=== PATIENT | male | born 1945 | race Caucasian/White ===

== ENCOUNTER 2019-09-05 12:04 | Outpatient (CLI) | payer OTHER, SELFPAY ==
--- NOTE | ~2019-09-05 | XR_ITS ---
EXAMINATION: XR chest 2V EXAM DATE: 09/05/2019 12:31 INDICATION: Pneumonia. TECHNIQUE: Frontal and lateral projections of the chest obtained and reviewed. Comparison is made to prior examination from 05/31/2019. FINDINGS: Previously seen right lower lobe airspace disease has resolved. The lungs are clear. Ther e are no pleural effusions. The cardiomediastinal silhouette is within normal limits. There is no p neumothorax suspected. The bones and soft tissues are unremarkable. IMPRESSION: No acute cardiopulmonary findings. Reviewed, dictated and finalized at location B. EL TRACTOR ENGINE MECHANIC
== END 2019-09-05 12:05 | disposition home or self-care (01) ==
PROVIDERS: Visit Provider Internal Medicine
DX: J18.9 Pneumonia, unspecified organism (principal)
CPT/HCPCS: 71046

== ENCOUNTER 2020-04-11 06:56 | Outpatient (CLI) | payer OTHER, SELFPAY ==
--- NOTE | ~2020-04-11 | CT_ITS ---
EXAMINATION: CT lung screening DATE: 04/11/2020 07:23 INDICATION: Personal history of nicotine dependence TECHNIQUE: Computed tomography (CT) of the chest was performed without intravenous contrast. The dose -length product was 136.61 mGy-cm. Automated exposure control and iterative reconstruction technique were employed. COMPARISON: CT dated 02/22/2019 FINDINGS: No significant pleural or pericardial effusion. Heart size is normal. There is atherosclero sis of the aorta and coronary arteries. There are calcified granulomas in the spleen. Calcified media stinal lymph nodes, consistent with chronic granulomatous disease. There is emphysema. There are reticulonodular densities in the right lower lobe. These are not signif icantly changed, likely postinfectious. Other areas of interstitial change seen on prior study have r esolved. There are a few calcified granulomas of the lung parenchyma. No new pulmonary nodules or mas ses. Mild thoracic spondylosis. No acute osseous abnormality. No osteolytic or osteoblastic lesions. IMPRESSION: 1. Lung-RADS category 2: Benign appearance or behavior. Continue annual screening with noncontrast lo w-dose chest CT in 12 months. Reviewed, dictated and finalized at location B. IMPRESSION: 1. Lung-RADS category 2: Benign appearance or behavior. Continue annual screeni ng with noncontrast low-dose chest CT in 12 months.
== END 2020-04-11 06:57 | disposition home or self-care (01) ==
LOC: ANHIMG 07:00
PROVIDERS: Visit Provider Internal Medicine
DX: Z12.2 Encounter for screening for malignant neoplasm of respiratory organs (principal); Z87.891 Personal history of nicotine dependence
CPT/HCPCS: G0297

== ENCOUNTER 2021-06-28 00:32 | Day surgery (SDC) | payer OTHER, SELFPAY ==
[2021-06-11 12:42] VITALS: BMI 25.8
--- NOTE | 2021-06-27 15:25 | PM.HPGS ---
History of Present Illness History of Present Illness Consent: Risks, benefits, and alternatives have been discussed and questions answered. Patient agrees to proceed with procedure. Chief complaint: hx colon polyps Narrative: Pranav Win is a 76 year old male Review of Systems Review of Systems: All systems reviewed & are unremarkable except as noted in HPI and below PMFSH Family History Family History Sibling Family history of coronary artery disease Patient's brother is Father Patient's father is Other Carcinoma of colon Colon polyp Social History Social History Smoking packs per day: 1 Smoking cigarettes per day: 20.0 Years smoked: 55 Smoking pack-years: 55.00 Smoking status: Former smoker Second hand tobacco smoke exposure: No Smoking end date: 07/27/19 Alcohol intake: current Drinks per week: 7 Substance use: never Substance use type: does not use Living arrangements: alone Spiritual care concerns: No Meds Home Medications and Allergies Home Medications Medication Instructions Recorded Confirmed Type rosuvastatin 10 mg tablet See Rx Instructions .ROUTE 02/08/21 06/11/21 Rx .COMPLEX #90 tablet sildenafil (pulm.hypertension) 20 20 mg PO .COMPLEX PRN #50 tablet 03/04/21 06/11/21 Rx mg tablet bupropion HCl 150 mg tablet,12 hr See Rx Instructions .ROUTE 04/08/21 06/11/21 Rx sustained-release .COMPLEX #180 tablet aspirin 81 mg tablet,delayed 81 mg PO DAILY #1 tablet 04/23/21 06/11/21 Rx release clopidogrel 75 mg tablet See Rx Instructions .ROUTE 05/06/21 06/11/21 Rx .COMPLEX #90 tablet amlodipine 5 mg tablet See Rx Instructions .ROUTE 06/24/21 Rx .COMPLEX #90 tablet Allergies Allergy/AdvReac Type Severity Reaction Status Date / Time No Known Allergies Allergy Verified 06/28/21 08:35 Exam Resp: Auscultation: clear to auscultation bilaterally Cardio: Rate: regular rate Rhythm: regular rhythm GI: GI Palp: Yes Soft to palpation and No Tenderness to palpation present (GI) Assessment and Plan Assessment and plan (1) Colon cancer screening: Code(s): Z12.11 - Encounter for screening for malignant neoplasm of colon Status: Acute Assessment and Plan: Colonoscopy with possible biopsy or polypectomy or cautery or injection of substances.
[2021-06-28 08:37] VITALS: BP 133/96; PULSE 72; RESP 20; TEMP 36.4; O2SAT 100; BMI 25.5
[2021-06-28] MEDS: LACTATED RINGERS 1,000 ML 150 ML IV CONT (08:40)
--- NOTE | 2021-06-28 08:48 | WPDANESEPPF ---
Anes - Initial Pre Proc Eval Procedure: Operation Date: 06/28/21 09:30 Proposed Procedures p Screening Colonoscopy - Harry Marshall MD Date/Time: 06/28/21 08:48 Surgeon: Harry Marshall MD Pre Op Diagnosis: hx colon polyps Patient Data Age: 76 Gender: M Height: 1.8 m Weight: 83.1 kg Last Vital Signs Temp 36.4 C L 06/28/21 08:37 Pulse 72 06/28/21 08:37 Resp 20 06/28/21 08:37 BP 133/96 H 06/28/21 08:37 Pulse Ox 100 06/28/21 08:37 Allergies Allergy/AdvReac Type Severity Reaction Status Date / Time No Known Allergies Allergy Verified 06/28/21 08:35 Home Medications Medication Instructions Recorded Confirmed Type rosuvastatin 10 mg tablet See Rx Instructions .ROUTE 02/08/21 06/11/21 Rx .COMPLEX #90 tablet sildenafil (pulm.hypertension) 20 20 mg PO .COMPLEX PRN #50 tablet 03/04/21 06/11/21 Rx mg tablet bupropion HCl 150 mg tablet,12 hr See Rx Instructions .ROUTE 04/08/21 06/11/21 Rx sustained-release .COMPLEX #180 tablet aspirin 81 mg tablet,delayed 81 mg PO DAILY #1 tablet 04/23/21 06/11/21 Rx release clopidogrel 75 mg tablet See Rx Instructions .ROUTE 05/06/21 06/11/21 Rx .COMPLEX #90 tablet amlodipine 5 mg tablet See Rx Instructions .ROUTE 06/24/21 Rx .COMPLEX #90 tablet Patient hx anesthesia problems: none Family hx anesthesia problems: none Results Review: All pre-operative results and documents have been reviewed as part of the pre-operative evaluation. [facility] Family History Family History Sibling Family history of coronary artery disease Patient's brother is Father Patient's father is Other Carcinoma of colon Colon polyp Social History Social History Smoking packs per day: 1 Smoking cigarettes per day: 20.0 Years smoked: 55 Smoking pack-years: 55.00 Smoking status: Former smoker Second hand tobacco smoke exposure: No Smoking end date: 07/27/19 Alcohol intake: current Drinks per week: 7 Substance use: never Substance use type: does not use Living arrangements: alone Spiritual care concerns: No Anes - Eval Final PreProcedure Day of Procedure 06/28/21 08:48 Patient weight: overweight Heart: regular rate and rhythm Lungs: clear to auscultation Airway: Mallampati scale class II Neurological: alert and oriented Last oral intake: >/= 8 hours ASA classification: III Emergent: no Anesthetic plan: proceed Anesthesia type and monitoring: general GIVS and standard monitoring Results Review: All pre-operative results and documents have been reviewed as part of the pre-operative evaluation. Informed Consent: The patient's anesthetic plan and its attendant risks and benefits were discussed with the patient/family/POA. Questions were solicited and answers provided to the satisfaction of the patient/family/POA.
[2021-06-28 09:47] VITALS: BP 87/48; PULSE 65; RESP 20; O2SAT 97
[2021-06-28 09:56] VITALS: BP 99/52; PULSE 67; RESP 20; O2SAT 99
[2021-06-28 10:07] VITALS: BP 85/52; PULSE 67; RESP 20; O2SAT 100
== END 2021-06-28 10:19 | disposition home or self-care (01) ==
PROVIDERS: Visit Provider Internal Medicine Gastroenterology
PROC: 0DJD8ZZ Inspection of Lower Intestinal Tract, Via Natural or Artificial Opening Endoscopic (ICD-10-PCS; CPT 45378; principal; 2021-06-28 09:30)
DX: Z12.11 Encounter for screening for malignant neoplasm of colon (principal); K57.30 Diverticulosis of large intestine without perforation or abscess without bleeding; Z86.010 Personal history of colon polyps; Z79.02 Long term (current) use of antithrombotics/antiplatelets; Z79.82 Long term (current) use of aspirin; Z87.891 Personal history of nicotine dependence
CPT/HCPCS: G0105; J2704; J7120

== ENCOUNTER 2022-01-29 08:32 | Outpatient (RCR) | payer OTHER, SELFPAY ==
[2022-01-29 09:58] VITALS: BP 133/56; PULSE 68; RESP 20; TEMP 36.2; O2SAT 99
[2022-01-29] MEDS: diphenhydrAMINE HCl CAP 25 MG CAPSULE PO (10:01)
[2022-01-29] MEDS: FAMOTIDINE 20 MG TABLET PO (10:01)
[2022-01-29] MEDS: ACETAMINOPHEN 325 MG TABLET 650 MG PO (10:01)
[2022-01-29] MEDS: BEBTELOVIMAB 175 MG/2 ML VIAL IV PUSH (10:23)
[2022-01-29 11:10] VITALS: BP 142/56; PULSE 60; O2SAT 99
== END 2022-01-29 16:00 ==
LOC: AMCINF 08:32
PROVIDERS: PCP Nurse Practitioner; Referring Provider Nurse Practitioner; Visit Provider Internal Medicine Hematology & Oncology
DX: U07.1 COVID-19 (principal)
CPT/HCPCS: A9270; M0222; Q0222

== ENCOUNTER 2023-05-14 11:08 | Outpatient (CLI) | payer OTHER, SELFPAY | END 2023-05-14 11:09 | disposition home or self-care (01) | LOC: ANHAUDIO 11:09 | PROVIDERS: PCP Nurse Practitioner Family; Visit Provider Nurse Practitioner Family | DX: H91.90 Unspecified hearing loss, unspecified ear (principal) | CPT/HCPCS: 92557; 92567 ==

== ENCOUNTER 2023-09-09 17:31 | Inpatient (IN) | payer OTHER, SELFPAY ==
[2023-09-09] VITALS (16 sets, daily range): BP systolic 132–190; BP diastolic 63–174; PULSE 68–146; RESP 13–24; TEMP 36.2–36.3; O2SAT 95–99; BMI 25.2
--- NOTE | ~2023-09-09 | XR_ITS ---
EXAMINATION: XR chest 1V portable DATE: 09/09/2023 18:21 INDICATION: Chest pain TECHNIQUE: frontal view of the chest was obtained. COMPARISON: Chest radiograph dated 09/05/[address] dated 04/11/2020 FINDINGS: Subtle increased interstitial pattern with minimal bronchial wall thickening in the bilateral lower l rachael zones. No pleural effusion or pneumothorax. The cardiomediastinal silhouette is normal. Visualize d bones and soft tissues are unremarkable. IMPRESSION: 1. Subtle increased interstitial pattern and minimal bronchial wall thickening in the bilateral lower lung zones. Differential would include bronchitis, reactive airway disease/asthma or minimal pulmona ry edema. Reviewed, dictated and finalized at location A. CTION THERAPIST IMPRESSION: 1. Subtle increased interstitial pattern and minimal bronchial wall thickening in the bilateral lower lung zones. Differential would include bronchitis, react trupti airway disease/asthma or minimal pulmonary edema.
--- NOTE | 2023-09-09 17:32 | ECG_ITS ---
Measurements Intervals [place] Rate: 147 P: VA: 0 QRS: -69 QRSD: 96 T: 0 QT: 149 QTc: 233 Interpretive Statements ATRIAL FLUTTER/TACHYCARDIA WITH RAPID VENTRICULAR RESPONSE MARKED LEFT AXIS DEVIATION [QRS AXIS < -30] INCOMPLETE RIGHT BUNDLE BRANCH BLOCK [90+ ms QRS DURATION, TERMINAL R IN V1/V2, 40+ ms S IN I/aVL/V4/V5/V6] NONSPECIFIC ST & T-WAVE ABNORMALITY COMPARED TO ECG 08/25/2018 09:02:14 ATRIAL FLUTTER NOW PRESENT Electronically Signed On 09-10-2023 12:34:45 HAT BRAIDER by Yris Feldman M.D.
[2023-09-09 18:03] LABS: Basophils Percent Auto 0.2 % (0.2-1.2); Eosinophils Absolute Auto 0.2 K/mm3 (0-0.3); Hematocrit 42.8 % (42.0-52.0); Hemoglobin 13.7 g/dL (14.0-18.0); Immature Granulocyte Absolute 0.03 K/mm3 (0.00-0.031); Immature Granulocyte Percent A 0.3 % (0-0.5); Lymphocytes Absolute Auto 2.32 K/mm3 (0.9-3.2); Mean Corpuscular Volume 93.9 fl (80-100); Mean Platelet Volume 9.9 fl (7.4-10.4); Monocytes Absolute Auto 0.9 K/mm3 (0.1-0.6); Monocytes Percent Auto 10.7 % (2.6-8.5); Neutrophils Absolute Auto 5.1 K/mm3 (1.3-6.7); Neutrophils Percent Auto 59.8 % (45.5-73.1); Platelet Count Result 201 k/mm3 (150-375); Red Blood Count 4.56 M/mm3 (4.6-6.20); Red Cell Distribution Width 12.9 % (11.5-14.5); White Blood Count 8.6 K/mm3 (4.5-10.0)
[2023-09-09] MEDS: ASPIRIN 81 MG CHEWABLE TABLET 324 MG PO (18:13)
[2023-09-09] MEDS: SODIUM CHLORIDE 0.9% IV 1,000 ML 150 ML IV CONT (18:14)
[2023-09-09] MEDS: dilTIAZem HCl INJ 25 MG/5 ML VIAL 10 MG IV PUSH (18:14)
[2023-09-09] MEDS: dilTIAZem 100 MG/100 ML 100 MG/100 ML BAG IV CONT (18:14)
--- NOTE | 2023-09-09 18:14 | PC.NURSE ---
Pt states he had 81mg of ASA this morning.
[2023-09-09 18:15] LABS: Prothrombin Time 13.9 Seconds (11.1-14.7)
[2023-09-09 18:16] LABS: Partial Thromboplastin Time 34.7 SECONDS (22.3-36.8)
[2023-09-09 18:17] LABS: Alanine Aminotransferase 24 U/L (6-50); Albumin Level 3.9 g/dL (3.5-5.1); Alkaline Phosphatase 78 U/L (38-126); Anion Gap 7 mmol/L (8-16); Aspartate Amino Transferase 30 U/L (17-59); Bilirubin,Total 0.4 mg/dL (0.2-1.3); Blood Urea Nitrogen 20 mg/dL (9-20); Calcium 9.4 mg/dL (8.4-10.2); Carbon Dioxide 27 mmol/L (22-30); Chloride 105 mmol/L (98-107); Estimated CRCL calculation 43 ml/min; Estimated Glomerular Filt Rate > 60; Glucose 119 mg/dL (65-110); Lipase 154 U/L (23-300); Magnesium 2.3 mg/dL (1.6-2.3); Potassium 3.7 mmol/L (3.4-5.0); Sodium 139 mmol/L (137-145)
--- NOTE | 2023-09-09 18:22 | ED.CHESTPAIN ---
HPI - Chest Pain General Chief Complaint: Chest Pain Stated Complaint: chest pressure/jaw pain since yesterday Time Seen by Provider: 09/09/23 17:45 History of Present Illness HPI narrative: Patient is an 78-year-old male who presents to the emergency department this afternoon complaining of palpitations and bilateral jaw pain. Patient states that symptoms started yesterday with the jaw pain and went away, however, it returned today. Patient states that while he was coughing today he noticed his heart rate does increase and finally decided to come to the emergency department for further evaluation. Denies any history of cardiovascular disease. Patient states that he has had a left heart catheterization approximately 20 years ago which showed clean coronaries. He takes a baby aspirin daily denies any blood thinner use. Patient is currently denying any chest pain or shortness of breath. Denies any nausea, vomiting, or abdominal pain. Denies any recent illness or fevers or chills. There are no other modifying, alleviating, or precipitating factors at this time. Related Data Home Medications Medication Instructions Recorded Confirmed fluticasone propionate 50 1 spray intranasal BID PRN 03/10/23 03/17/23 mcg/actuation nasal spray,suspension (Flonase Allergy Relief) Allergies Allergy/AdvReac Type Severity Reaction Status Date / Time No Known Allergies Allergy Verified 03/17/23 07:15 Review of Systems Review of Systems: All systems are reviewed and are negative unless stated otherwise in the HPI. [facility] Past Medical History Medical History BPH (benign prostatic hyperplasia) COVID-19 Erectile dysfunction Essential (primary) hypertension History of CVA (cerebrovascular accident) History of tobacco use Hypovitaminosis D Mixed hyperlipidemia LEXIE (obstructive sleep apnea) REM sleep behavior disorder Family History Family History Sibling Family history of coronary artery disease Patient's brother is Father Patient's father is Other Carcinoma of colon Colon polyp Social History Social History Years smoked: 55 Smoking status: Current some day smoker Tobacco type: cigarettes Additional smoking assessment comments: Per patient he only smokes on the golf coarse. Alcohol intake: current Drinks per week: 9 Alcohol use details: socially Substance use: never Substance use type: does not use Lack of Transportation: No Lack of Food: Never True Current Housing: I Have Housing Concerned About Future Housing: No Difficulty Paying Gas/Electric Bills: No Difficulty Paying for Meds: No Currently Unemployed: No Education: High School Diploma/GED Difficulty w/ Childcare or Family Care: No Living arrangements: alone Spiritual care concerns: No Exam Narrative: General: Alert, awake, afebrile, in no acute distress. HEENT: PERRL, no rhinorrhea, no post nasal drip, oropharynx clear. Neck: Trachea midline, no JVD, no lymphadenopathy. Cardiovascular: Tachycardic with an irregular rhythm, no murmurs, rubs or gallops, no peripheral edema. Respiratory: Clear to auscultation bilaterally, no tachypnea, no wheezing, no rhonchi, no rubs, no respiratory distress. Abdomen: Soft, nontender, nondistended, no rebound, no guarding, no peritoneal signs. Musculoskeletal: No joint swelling or deformity, normal muscle tone. Skin: No rashes or petechia, no signs of infection. Psychiatric: Alert and oriented, normal behavior and judgment for situation. Neurological: Alert and oriented to person, place, and time. Follows all commands. No focal deficits, speech is clear and fluent. Course Vital Signs Vital signs: Vital Signs Temperature 97.3 F L 09/09/23 17:41 Pulse Rate 144 H 09/09/23
[2023-09-09 18:28] LABS: Troponin I < 0.012 ng/mL (0.000-0.034)
[2023-09-09 18:37] LABS: Appearance Urine Clear (Clear); Bilirubin Urine Negative (Negative); Blood Urine Negative (Negative); Color Urine Yellow (Yellow); Glucose Urine UA Negative (Negative); Ketones Urine Negative (Negative); Leukocyte Esterase Ur Negative LEU/UL (Negative); Nitrate Urine Negative (Negative); Protein Urine Negative (Negative); Specific Grav Ur 1.014 (1.001-1.035); Urobilinogen Urine 0.2 mg/dL (<2.0); pH Urine 5.5 (5.0-9.0)
[2023-09-09 18:43] LABS: Add Urine Microscopic? NO
--- NOTE | 2023-09-09 19:19 | PC.NURSE ---
Assumed care of pt from MARY Clayton at this time.
[2023-09-09] MEDS: ENOXAPARIN 80 MG/0.8 ML SYRINGE 58 MG SUB-Q (19:48)
[2023-09-09 21:18] LABS: Troponin I < 0.012 ng/mL (0.000-0.034)
--- NOTE | 2023-09-09 22:50 | ADMGEN ---
This patient, Pranav Win, was admitted to IMU Room 206-02. Patient/family oriented to hospital policies and general routines including ID bracelet, bed and alarms, visiting hours, pain management, procedures, bathroom and other care routines, personal items, smoking policy, room service/diet, and visiting hours. Information on how to activate the Rapid Response Team has been discussed. Patient/Family are encouraged to report perceived risks to care and to ask questions if they do not understand what they are told or what they should do.
[2023-09-10] VITALS (12 sets, daily range): BP systolic 120–150; BP diastolic 62–66; PULSE 68–110; RESP 18–22; TEMP 36.2–36.6; O2SAT 97–98
--- NOTE | 2023-09-10 | ECHO_ITS ---
Patient Info Name: Pranav Win Age: 78 years : 1945 Gender: Male Ht: 71 in Wt: 180 lbs BSA: 2.03 m2 HR: 83 bpm BP: 149 / 62 mmHg Heart Rhythm: Sinus Rhythm Technical Quality: Poor Exam Date: 09/10/2023 9:05 AM Exam Location: Echo Lab Patient Status: Inpatient Admit Date: 09/09/2023 Staff Ordering Physician: Diana Shah MD Band Scroll Saw Operator: Brandy Andersen RDCS Attending Provider: Adelaida Sykes DO Referring Physician: Alyssa AARON; Exam Type: CA echo dop color flow w con Study Info Indications - new onset a fib Complete two-dimensional, color flow and Doppler transthoracic echocardiogram is performed with contrast to opacify the left ventricle and to improve the deliniation of the left ventricle endocardial borders. Contrast/Agitated Saline Contrast/Ag. Saline: Definity Amount: 3.00 ml Reason for Poor Study: poor echocardiographic windows Summary 1. Left ventricular chamber dimension is normal. 2. Left ventricular systolic function is normal, estimated at 60-65%. 3. There is mildly increased left ventricular wall thickness. 4. The left ventricular diastolic function is grade I diastolic dysfunction. 5. There is mild to moderate aortic valve regurgitation. 6. There is mild aortic valve calcification. 7. There is mild mitral valve regurgitation. 8. There is mild pulmonic regurgitation. 9. The aortic root size at the sinus of Valsalva is mildly dilated. Left Ventricle Left ventricular chamber dimension is normal. Left ventricular systolic function is normal, estimated at 60-65%. There is mildly increased left ventricular wall thickness. The left ventricular diastolic function is grade I diastolic dysfunction. Right Ventricle Right ventricular chamber dimension is normal. Right ventricular systolic function is normal. Left Atria Left atrial chamber dimension is normal. Right Atria Right atrial chamber dimension is normal. Atrial Septum Intact interatrial septum visualized by color flow imaging. Aortic Valve The aortic valve is trileaflet. There is mild aortic valve sclerosis. There is no aortic valve stenosis. There is mild to moderate aortic valve regurgitation. There is mild aortic valve calcification. Pulmonic Valve The pulmonic valve is normal. There is no pulmonic valve stenosis. There is mild pulmonic regurgitation. Mitral Valve The mitral valve has calcified annulus. There is no mitral valve stenosis. There is mild mitral valve regurgitation. Tricuspid Valve The tricuspid valve leaflets are normal. There is no significant tricuspid valve stenosis. There is trace tricuspid valve regurgitation. No pulmonary hypertension, estimated pulmonary arterial systolic pressure is 15 mmHg. Pericardium/Pleural The pericardium appears normal. There is no pericardial effusion. Inferior Vena Cava Normal inferior vena cava with >50% collapse upon inspiration consistent with normal right atrial pressure, 10 mmHg. Aorta The aortic root size at the sinus of Valsalva is mildly dilated. Left Ventricular Outflow Tract Name Value Normal LVOT 2D LVOT Diameter 2.22 cm LVOT Doppler LVOT Peak Gradient
[2023-09-10 01:26] LABS: Troponin I < 0.012 ng/mL (0.000-0.034)
--- NOTE | 2023-09-10 04:32 | ECG_ITS ---
Measurements Intervals [place] Rate: 69 P: 60 MT: 164 QRS: -61 QRSD: 111 T: 57 QT: 339 QTc: 365 Interpretive Statements SINUS RHYTHM COMPARED TO ECG 09/09/2023 17:39:36 SINUS RHYTHM NOW PRESENT Electronically Signed On 09-10-2023 12:39:18 CARBON BRUSHES ASSEMBLER by Yris Feldman M.D.
[2023-09-10] MEDS: ACETAMINOPHEN 325 MG TABLET 650 MG PO (05:50)
--- NOTE | 2023-09-10 07:31 | PM.IMHP ---
H&P: HPI History of Present Illness Date/Time: 09/10/23 07:31 Chief Complaint: Chest pain and palpitation Narrative: Patient is an 78-year-old male with history of CVA, tobacco to use, hyperlipidemia, LEXIE, present ED with chief complaint of chest pain and palpitation. Patient has been having intermittent chest pain in past 3 days, locating in left chest, radiating to bilateral jaw, patient also has palpitation. Patient had another episode of palpitation yesterday, therefore patient came to ED for evaluation. patient states that he has had a left heart catheterization approximately 20 years ago which showed clean coronaries.? He takes a baby aspirin daily denies any blood thinner use patient denies abdomen pain any nausea, vomiting, fevers or chills.? In the ED, upon arrival in the ED, patient was afebrile, pulse ox 97 on room air, blood pressure stable, troponin negative x3, EKG showed no specific ST T-wave changes port EKG showed AFib RVR heart rate 147. Chest x-ray showed no acute cardiopulmonary issues. Patient received aspirin 324 mg once, Dr. Brittney chirinos, Lovenox 58 mg subQ once. We admit patient for further evaluation and treatment PMFSH Past Medical History Medical History BPH (benign prostatic hyperplasia) COVID-19 Erectile dysfunction Essential (primary) hypertension History of CVA (cerebrovascular accident) History of tobacco use Hypovitaminosis D Mixed hyperlipidemia LEXIE (obstructive sleep apnea) REM sleep behavior disorder Family History Family History Sibling Family history of coronary artery disease Patient's brother is Father Patient's father is Other Carcinoma of colon Colon polyp Social History Social History Years smoked: 50 Smoking status: Current some day smoker Tobacco type: cigarettes Additional smoking assessment comments: Per patient he only smokes on the golf coarse. Alcohol intake: current Drinks per week: 9 Alcohol use details: socially Substance use: never Substance use type: does not use Do You Feel Safe in your Home?: Yes Lack of Transportation: No Lack of Food: Never True Current Housing: I Have Housing Concerned About Future Housing: No Difficulty Paying Gas/Electric Bills: No Difficulty Paying for Meds: No Currently Unemployed: No Education: Associate Degree Difficulty w/ Childcare or Family Care: No Living arrangements: alone Spiritual care concerns: No Meds Home Medications and Allergies Home Medications Medication Instructions Recorded Confirmed Type aspirin 81 mg tablet,delayed 81 mg PO DAILY #1 tablet 04/23/21 09/09/23 Rx release (Adult Aspirin Regimen) finasteride 5 mg tablet 5 mg PO DAILY #90 tabs 05/18/23 09/09/23 Rx sildenafil (pulm.hypertension) 20 20 mg PO .COMPLEX PRN sexual 07/24/23 09/09/23 Rx mg tablet activity #50 tabs amlodipine 2.5 mg tablet 2.5 mg PO DAILY #90 tabs 08/03/23 09/09/23 Rx bupropion HCl 150 mg tablet,12 hr 150 mg PO BID 09/09/23 09/09/23 History sustained-release clopidogrel 75 mg tablet 75 mg PO DAILY 09/09/23 09/09/23 History diphenhydramine 25 2 tablet PO HS PRN Sleep 09/09/23 09/09/23 History mg-acetaminophen 500 mg tablet (Tylenol PM Extra Strength) rosuvastatin 10 mg tablet 10 mg PO HS 09/09/23 09/09/23 History Allergies Allergy/AdvReac Type Severity Reaction Status Date / Time No Known Allergies Allergy Verified 03/17/23 07:15 Vital Signs Vital Signs - 24 hr 09/09/23 17:41 09/09/23 18:14 09/09/23 17:52 Temperature 97.3 F L Pulse Rate 144 H 146 H 144 H Respiratory Rate 18 15 Blood Pressure 139/82 156/143 H Pulse Oximetry 98 98 Oxygen Delivery Room Air 09/09/23 17:53 09/09/23 18:00 09/09/23 18:01 Temperature Pulse Rate 146 H 146 H 145 H Resp
[2023-09-10] MEDS: buPROPion HCL SR (12 HR) 150 MG TAB PO (08:52)
[2023-09-10] MEDS: CLOPIDOGREL BISULFATE 75 MG TABLET PO (08:53)
[2023-09-10] MEDS: FINASTERIDE 5 MG TABLET PO (08:53)
[2023-09-10] MEDS: ASPIRIN 81 MG ENTERIC TABLET PO (08:53)
[2023-09-10] MEDS: PERFLUTREN LIPID MICROSPHERES 1.5 ML VIAL DILUTED TO 10 ML TOTAL VOLUME IV PUSH (09:30)
--- NOTE | 2023-09-10 11:01 | IVDEFINITY ---
Prior to administration of IV Definity the patient was educated on the risks and benefits of the imaging enhancing agent including potential adverse side effects. The patient verbalized understanding. Allergies were verified. No exclusion criteria were identified and at least one of the following inclusion criteria were met: 1) physician request, 2) patient technically difficult to image (per the [place] [employer] guidelines of two or more segments not discernable within the apical view), or 3) questionable left ventricular function. ?
--- NOTE | 2023-09-10 11:17 | PM.CNCAR ---
Assessment and Plan Assessment and plan (1) New onset atrial flutter: Code(s): I48.92 - Unspecified atrial flutter Status: Acute Assessment and Plan: new onset atrial flutter. He did not have palpitations but presenting symptoms included Jaw and chest pain which is concerning for angina. His chads Vasc score is 5. Anticoagulation is warranted. He is now on sinus rhythm and I a.m. going to start him on Xarelto 20 mg daily. Will discontinue his aspirin and clopidogrel. will also transition him off of amlodipine on to diltiazem. Will utilize long-acting diltiazem 120 mg p.o. daily. Echocardiogram is already ordered and pending. Will check a TSH and free T4 level. Encouraged is CPAP use. Outpatient stress test. Follow-up with me long-term (2) LEXIE (obstructive sleep apnea): Code(s): G47.33 - Obstructive sleep apnea (adult) (pediatric) Status: Acute Assessment and Plan: encouraged use CPAP (3) Mixed hyperlipidemia: Code(s): E78.2 - Mixed hyperlipidemia Status: Acute Assessment and Plan: continue statin (4) History of CVA (cerebrovascular accident): Code(s): Z86.73 - Personal history of transient ischemic attack (TIA), and cerebral infarction without residual deficits Status: Acute Assessment and Plan: because of need for anticoagulation, will discontinue his aspirin and clopidogrel and utilize Xarelto (5) Essential (primary) hypertension: Code(s): I10 - Essential (primary) hypertension Status: Acute Assessment and Plan: above goal (6) History of tobacco use: Code(s): Z87.891 - Personal history of nicotine dependence Status: Acute Assessment and Plan: should continue to refrain History of Present Illness History of Present Illness Consult date/time: 09/10/23 11:17 Requesting physician: Mally Castillo MD Consult reason: atrial fibrillation Reason For Visit: A Levy,RVR Narrative: reason for consultation: Atrial fibrillation Date of service 09/10/2023 Requesting provider: Dr. castillo history: Patient is a 78-year-old male who has a history of CVA, tobacco use, hyperlipidemia, sleep apnea you% hospital because of jaw neck pain as well as chest pain. Patient states starting on Thursday which is 2 days ago he started developed jaw pain. It would come and go over. 30-45 minutes. He also describes a tightness in his chest. Yesterday he was golfing and other episode. He had no shortness of breath no palpitations. Because of these symptoms however he talk to his he was brought to the hospital for further workup and evaluation. he was found to be in atrial flutter with rapid ventricular response with heart rate around 150. Troponins are negative. He was started on diltiazem and has since converted back to sinus rhythm. At this point he feels great and is not without any symptoms. He otherwise feels okay in general denies any chest pain, shortness breath, syncope, presyncope pat, paroxysmal nocturnal dyspnea, orthopnea, edema palpitation he does take aspirin and Plavix for history of stroke. Review of Systems Review of Systems: All systems reviewed & are unremarkable except as noted in HPI and below Constitutional: Constitutional: Denies chills Eyes: Eyes: Denies blurry vision ENT: Denies Normal hearing present Cardiovascular: Cardiovascular: Reports chest pain and Denies diaphoresis Respiratory: Respiratory: Denies hemoptysis and Denies dyspnea Gastrointestinal: Gastrointestinal: Denies abdominal pain Genitourinary: Genitourinary: Denies hematuria Musculoskeletal: Musculoskeletal: Denies back pain Integumentary/Breasts: Skin/Breast: Denies dry skin Neurologic: Denies Abnormal speech present Psychiatric: Psychiatric: Denies anxiety and Denies behavioral changes Endocrine: Endocrine: Denies excessive sweating Hematologic/Lymphatic: Hematologic/Lymphatic: Denies easy bleeding
[2023-09-10] MEDS: dilTIAZem HCL CD 120 MG CAP.24HR PO (11:55)
--- NOTE | 2023-09-10 13:14 | PM.DS ---
DS: Admitting Diagnosis Discharge Date 09/10/23 Admitting Diagnosis New onset AFib Chest pain DS: Discharge Diagnosis Discharge Diagnosis (1) New onset a-fib: Code(s): I48.91 - Unspecified atrial fibrillation Status: Acute (2) Atrial fibrillation with rapid ventricular response: Code(s): I48.91 - Unspecified atrial fibrillation Status: Acute (3) LEXIE (obstructive sleep apnea): Code(s): G47.33 - Obstructive sleep apnea (adult) (pediatric) Status: Acute (4) Mixed hyperlipidemia: Code(s): E78.2 - Mixed hyperlipidemia Status: Acute (5) History of CVA (cerebrovascular accident): Code(s): Z86.73 - Personal history of transient ischemic attack (TIA), and cerebral infarction without residual deficits Status: Acute DS: Summary Hospital Course Hospital Course: Patient is an 78-year-old male with history of CVA, tobacco to use, hyperlipidemia, LEXIE, present ED with chief complaint of chest pain and palpitation.? Patient has been having intermittent chest pain in past 3 days, locating in left chest, radiating to bilateral jaw, patient also has palpitation.? Patient had another episode of palpitation yesterday, therefore patient came to ED for evaluation. patient states that he has had a left heart catheterization approximately 20 years ago which showed clean coronaries.? He takes a baby aspirin daily denies any blood thinner use patient denies abdomen pain any nausea, vomiting, fevers or chills.? In the ED, upon arrival in the ED, patient was afebrile, pulse ox 97 on room air, blood pressure stable, troponin negative x3, EKG showed no specific ST T-wave changes port EKG showed AFib RVR heart rate 147.? Chest x-ray showed no acute cardiopulmonary issues.? Patient received aspirin 324 mg once, Dr. Brittney chirinos, Lovenox 58 mg subQ once.? We admit patient for further evaluation and treatment The following med issues have been addressed during hospitalization New onset AFib and RVR Unclear etiologies Follow-up TSH, magnesium level, order echocardiogram, Patient received Lovenox 58 mg subQ once Continue Brittney chirinos Patient has history of CVA, hypertension, age 78, patient needs blood thinner for CVA prophylaxis Consult tiller man for evaluation. When I re-examined patient, patient had a sinus rhythm Appreciate cardiology consultation, a neurologist recommends:Xarelto 20 mg daily.? Will discontinue his aspirin and clopidogrel. will also transition him off of amlodipine on to diltiazem.? Will utilize long-acting diltiazem 120 mg p.o. daily.? Echocardiogram is already ordered and pending.? Will check a TSH and free T4 level.? Encouraged is CPAP use.? Outpatient stress test.? Follow-up with tiller man long-term Chest pain Negative troponin, EKG shows sinus rhythm no specific ST-T changes Likely secondary to AFib RVR Cannot rule out ACS Telemetry monitoring on aspirin 81 mg daily p.o., Plavix 75 mg daily p.o. When I reexamined the patient, patient did have chest pain Cardiology's recommends to discontinue aspirin crepitus when patient is on Xarelto p.o. History of CVA Continue aspirin 81 mg daily p.o., Plavix 75 mg p.o., Crestor 10 mg daily p.o. No new focal deficits Discontinue aspirin and Plavix per tiller man Essential hypertension Hold amlodipine p.o. currently patient is on Cardizem drip. Transition from amlodipine to Cardizem 120 mg daily Discharge patient today, patient will be follow-up by tiller man in the office Time Spent with Patient Time attestation: Total time spent providing and/or coordinating discharge services: Exam Narrative: GENERAL: Pleasant, in no acute distress. Well-nourished. - EYES: EOMI. Anicteric. - HENT: Moist mucous membranes. - LUNGS: Clear to auscultation bilaterally, no wheezing, rhonchi, or rales. - CARDIOVASCULAR: Regular rate and rhythm. No murmur. No JVD. - ABDOMEN: Soft, non-tender and non-distended. No palpable masses.
== END 2023-09-10 14:41 | disposition home or self-care (01) | DRG 310 ==
LOC: ANHED 19:27 → ANHIMU 22:45
PROVIDERS: Emergency Medicine; Admitting Provider Internal Medicine; Emergency Provider Emergency Medicine; PCP Family Medicine; Visit Provider Hospitalist
DX: I48.91 Unspecified atrial fibrillation (principal); G47.33 Obstructive sleep apnea (adult) (pediatric); E78.2 Mixed hyperlipidemia; I10 Essential (primary) hypertension; N40.0 Benign prostatic hyperplasia without lower urinary tract symptoms; F17.210 Nicotine dependence, cigarettes, uncomplicated; Z86.73 Personal history of transient ischemic attack (TIA), and cerebral infarction without residual deficits; Z79.82 Long term (current) use of aspirin; Z79.02 Long term (current) use of antithrombotics/antiplatelets; Z86.16 Personal history of COVID-19
CPT/HCPCS: 36415; 71045; 80053; 81003; 83690; 83735; 84443; 84484; 85025; 85610; 85730; 93005; 96365; 96366; 96372; 99285; A9270; C8929; J1650; J7030; Q9957

== ENCOUNTER 2023-09-14 08:03 | Emergency (ER) | payer OTHER, SELFPAY ==
[2023-09-14] VITALS (13 sets, daily range): BP systolic 124–143; BP diastolic 74–95; PULSE 68–142; RESP 10–21; TEMP 36.6; O2SAT 93–100
--- NOTE | ~2023-09-14 | XR_ITS ---
EXAMINATION: XR chest 2V DATE: 09/14/2023 09:14 INDICATION: Tachycardia TECHNIQUE: PA and lateral views of the chest are obtained. COMPARISON: 09/09/2023 FINDINGS: The lungs are free of acute opacities. No pleural effusion or pneumothorax. The cardiomedia stinal silhouette is normal. The visualized bones and soft tissues are unremarkable. IMPRESSION: 1. No acute cardiopulmonary abnormality. Reviewed, dictated and finalized at location B. IGN LANGUAGES PROFESSOR
--- NOTE | 2023-09-14 08:05 | ECG_ITS ---
Measurements Intervals [place] Rate: 142 P: [place]: 0 QRS: -51 QRSD: 97 T: 75 QT: 300 QTc: 461 Interpretive Statements ATRIAL FLUTTER WITH RAPID VENTRICULAR RESPONSE LEFT AXIS DEVIATION [QRS AXIS < -30] NONSPECIFIC ST & T-WAVE ABNORMALITY ABNORMAL ECG COMPARED TO ECG 09/10/2023 04:56:19 ATRIAL FLUTTER NOW PRESENT LEFT-AXIS DEVIATION NOW PRESENT T-WAVE ABNORMALITY NOW PRESENT Electronically Signed On 09-14-2023 18:24:39 GRADER MARKER by Ventura Bolaños M.D.
[2023-09-14 08:36] LABS: Basophils Percent Auto 0.4 % (0.2-1.2); Eosinophils Absolute Auto 0.3 K/mm3 (0-0.3); Eosinophils Percent Auto 3.9 % (0-4.4); Hematocrit 44.5 % (42.0-52.0); Hemoglobin 14.3 g/dL (14.0-18.0); Immature Granulocyte Absolute 0.02 K/mm3 (0.00-0.031); Immature Granulocyte Percent A 0.2 % (0-0.5); Lymphocytes Percent Auto 26.6 % (18.3-44.2); Mean Corpuscular HGB Conc 32.1 g/dl (32-36); Mean Corpuscular Hemoglobin 29.8 pg (26-34); Mean Corpuscular Volume 92.7 fl (80-100); Mean Platelet Volume 9.8 fl (7.4-10.4); Monocytes Absolute Auto 0.9 K/mm3 (0.1-0.6); Neutrophils Absolute Auto 4.8 K/mm3 (1.3-6.7); Neutrophils Percent Auto 57.9 % (45.5-73.1); Platelet Count Result 212 k/mm3 (150-375); Red Cell Distribution Width 12.4 % (11.5-14.5); White Blood Count 8.3 K/mm3 (4.5-10.0)
[2023-09-14 08:45] LABS: Alanine Aminotransferase 27 U/L (6-50); Albumin Level 4.2 g/dL (3.5-5.1); Alkaline Phosphatase 77 U/L (38-126); Anion Gap 6 mmol/L (8-16); Aspartate Amino Transferase 26 U/L (17-59); Bilirubin,Total 0.5 mg/dL (0.2-1.3); Blood Urea Nitrogen 17 mg/dL (9-20); Calcium 9.2 mg/dL (8.4-10.2); Carbon Dioxide 28 mmol/L (22-30); Chloride 105 mmol/L (98-107); Estimated CRCL calculation 55 ml/min; Estimated Glomerular Filt Rate > 60; Glucose 116 mg/dL (65-110); Lipase 97 U/L (23-300); Potassium 3.8 mmol/L (3.4-5.0); Sodium 139 mmol/L (137-145)
[2023-09-14 08:47] LABS: INR 1.1
[2023-09-14 08:48] LABS: Partial Thromboplastin Time 39.5 SECONDS (22.3-36.8)
[2023-09-14] MEDS: dilTIAZem HCl INJ 25 MG/5 ML VIAL 15 MG IV PUSH (08:48)
[2023-09-14 08:57] LABS: Troponin I < 0.012 ng/mL (0.000-0.034)
[2023-09-14] MEDS: dilTIAZem 100 MG/100 ML 100 MG/100 ML BAG IV CONT (09:18)
--- NOTE | 2023-09-14 10:02 | ECG_ITS ---
Measurements Intervals [place] Rate: 69 P: 54 [place]: 164 QRS: -59 QRSD: 101 T: 55 QT: 408 QTc: 440 Interpretive Statements SINUS RHYTHM LEFT ANTERIOR FASCICULAR BLOCK [QRS AXIS <= -45, QR IN I, RS IN II] BORDERLINE ECG COMPARED TO ECG 09/14/2023 08:19:07 SINUS RHYTHM NOW PRESENT LEFT ANTERIOR FASCICULAR BLOCK NOW PRESENT Electronically Signed On 09-14-2023 18:27:53 PATIENT SUPPORT TECH by Ventura Bolaños M.D.
--- NOTE | 2023-09-14 10:58 | ED.ARRPALP ---
HPI - Arrhythmia/Palpitations General Chief Complaint: Arrhythmia/Palpitations Stated Complaint: rapid heart rate, left jaw pain Time Seen by Provider: 09/14/23 08:07 History of Present Illness HPI narrative: Patient is an 78-year-old male who presents ER with AFib with RVR. He was recently hospitalized for the same issue which was a new diagnosis of AFib. He was started on diltiazem as well as Xarelto. He reports this morning he was taking the dog out when he felt discomfort in his left jaw which was the same symptoms last time. When he checked his fit that he found his heart rate was elevated and came to the ER. He is in no distress as time and not neck complaints. Related Data Home Medications Medication Instructions Recorded Confirmed bupropion HCl 150 mg tablet,12 hr 150 mg PO BID 09/09/23 09/14/23 sustained-release diphenhydramine 25 2 tablet PO HS PRN Sleep 09/09/23 09/14/23 mg-acetaminophen 500 mg tablet (Tylenol PM Extra Strength) rosuvastatin 10 mg tablet 10 mg PO HS 09/09/23 09/14/23 Allergies Allergy/AdvReac Type Severity Reaction Status Date / Time No Known Allergies Allergy Verified 09/14/23 08:26 Review of Systems Review of Systems: All systems reviewed & are unremarkable except as noted in HPI and below Constitutional: Constitutional: Reports no additional constitutional complaints ENT: Reports system reviewed and no additional complaints, except as documented Cardiovascular: Cardiovascular: Denies chest pain, Reports rapid heart rate and Denies radiating jaw, neck or arm pain Respiratory: Respiratory: Reports no additional respiratory complaints Gastrointestinal: Gastrointestinal: Reports no additional gastrointestinal complaints Musculoskeletal: Musculoskeletal: Reports no additional musculoskeletal complaints [facility] Past Medical History Medical History BPH (benign prostatic hyperplasia) COVID-19 Erectile dysfunction Essential (primary) hypertension History of CVA (cerebrovascular accident) History of tobacco use Hypovitaminosis D Mixed hyperlipidemia LEXIE (obstructive sleep apnea) REM sleep behavior disorder Family History Family History Sibling Family history of coronary artery disease Patient's brother is Father Patient's father is Other Carcinoma of colon Colon polyp Social History Social History Years smoked: 50 Smoking status: Current some day smoker Tobacco type: cigarettes Additional smoking assessment comments: Per patient he only smokes on the golf coarse. Alcohol intake: current Drinks per week: 9 Alcohol use details: socially Substance use: never Substance use type: does not use Do You Feel Safe in your Home?: Yes Lack of Transportation: No Lack of Food: Never True Current Housing: I Have Housing Concerned About Future Housing: No Difficulty Paying Gas/Electric Bills: No Difficulty Paying for Meds: No Currently Unemployed: No Education: Associate Degree Difficulty w/ Childcare or Family Care: No Living arrangements: alone Spiritual care concerns: No Exam Narrative: GENERAL: Well-appearing, well-nourished, and in no acute distress. HEAD: Normocephalic, atraumatic. ENT: Mucous membranes moist. CHEST: Clear to auscultation. No respiratory distress. HEART: Irregular irregular rate and rhythm that is tachycardic. Normal peripheral pulses. ABDOMEN: Soft, nontender, nondistended. EXTREMITIES: Normal range of motion. No edema. SKIN: Warm, dry, no rash. NEURO: Alert and oriented x3. PSYCH: Normal mood and affect. Course Course Emergency Course: Spoke with Chetna Locke NP with cardiology at 1109. Patient is now back in a sinus rhythm in the diltiazem drip has been stopped. She recommends increasing dilti
--- NOTE | 2023-09-14 11:06 | ECG_ITS ---
Measurements Intervals [place] Rate: 67 P: 49 [place]: 158 QRS: -59 QRSD: 114 T: 51 QT: 416 QTc: 440 Interpretive Statements SINUS RHYTHM WITH OCCASIONAL SUPRAVENTRICULAR PREMATURE COMPLEXES INCOMPLETE RIGHT BUNDLE BRANCH BLOCK [90+ ms QRS DURATION, TERMINAL R IN V1/V2, 40+ ms S IN I/aVL/V4/V5/V6] LEFT ANTERIOR FASCICULAR BLOCK [QRS AXIS <= -45, QR IN I, RS IN II] ABNORMAL ECG COMPARED TO ECG 09/14/2023 10:04:47 INCOMPLETE RIGHT BUNDLE-BRANCH BLOCK NOW PRESENT Electronically Signed On 09-14-2023 18:29:20 PHOTO MACHINE OPERATOR by Ventura Bolaños M.D.
[2023-09-14 11:46] LABS: Troponin I < 0.012 ng/mL (0.000-0.034)
== END 2023-09-14 11:42 | disposition home or self-care (01) ==
PROVIDERS: Emergency Medicine; Emergency Provider Emergency Medicine; PCP Family Medicine
DX: I48.91 Unspecified atrial fibrillation (principal); I10 Essential (primary) hypertension; E78.2 Mixed hyperlipidemia; E55.9 Vitamin D deficiency, unspecified; N40.0 Benign prostatic hyperplasia without lower urinary tract symptoms; G47.33 Obstructive sleep apnea (adult) (pediatric); G47.52 REM sleep behavior disorder; F17.210 Nicotine dependence, cigarettes, uncomplicated; Z86.73 Personal history of transient ischemic attack (TIA), and cerebral infarction without residual deficits; Z86.16 Personal history of COVID-19; Z79.01 Long term (current) use of anticoagulants; R94.31 Abnormal electrocardiogram [ECG] [EKG]; I49.1 Atrial premature depolarization; I48.92 Unspecified atrial flutter; I45.2 Bifascicular block
CPT/HCPCS: 36415; 71046; 80053; 83690; 84484; 85025; 85610; 85730; 93005; 96365; 99284

== ENCOUNTER 2023-09-15 21:16 | Emergency (ER) | payer OTHER, SELFPAY ==
--- NOTE | ~2023-09-15 | XR_ITS ---
EXAMINATION: XR chest 2V DATE: 09/15/2023 22:05 INDICATION: Palpitations. Atrial fibrillation. TECHNIQUE: Frontal and lateral views of the chest were obtained. COMPARISON: Chest 2 views 09/14/2023, chest CT 04/11/2020 FINDINGS: There is no pneumonia, pleural effusion, or pneumothorax. The heart size is normal. IMPRESSION: 1. No acute cardiopulmonary disease. Reviewed, dictated and finalized at location E. ER MACHINE OPERATOR
--- NOTE | 2023-09-15 21:18 | ECG_ITS ---
Measurements Intervals [place] Rate: 97 P: [place]: 0 QRS: -58 QRSD: 109 T: 73 QT: 387 QTc: 492 Interpretive Statements ATRIAL FIBRILLATION PATTERN CONSISTENT WITH PULMONARY DISEASE LEFT ANTERIOR FASCICULAR BLOCK [QRS AXIS <= -45, QR IN I, RS IN II] ABNORMAL ECG COMPARED TO ECG 09/14/2023 11:11:29 ATRIAL FIBRILLATION NOW PRESENT Electronically Signed On 09-16-2023 16:20:11 ADDICTIONS RECOVERY SPECIALIST by Ventura Bolaños M.D.
[2023-09-15 21:34] LABS: Basophils Percent Auto 0.4 % (0.2-1.2); Eosinophils Absolute Auto 0.3 K/mm3 (0-0.3); Eosinophils Percent Auto 3.4 % (0-4.4); Hematocrit 43.6 % (42.0-52.0); Hemoglobin 13.9 g/dL (14.0-18.0); Immature Granulocyte Absolute 0.03 K/mm3 (0.00-0.031); Immature Granulocyte Percent A 0.4 % (0-0.5); Lymphocytes Absolute Auto 2.51 K/mm3 (0.9-3.2); Lymphocytes Percent Auto 30.1 % (18.3-44.2); Mean Corpuscular HGB Conc 31.9 g/dl (32-36); Mean Corpuscular Hemoglobin 29.9 pg (26-34); Mean Corpuscular Volume 93.8 fl (80-100); Mean Platelet Volume 9.5 fl (7.4-10.4); Monocytes Percent Auto 11.4 % (2.6-8.5); Neutrophils Absolute Auto 4.5 K/mm3 (1.3-6.7); Neutrophils Percent Auto 54.3 % (45.5-73.1); Platelet Count Result 198 k/mm3 (150-375); Red Blood Count 4.65 M/mm3 (4.6-6.20); Red Cell Distribution Width 12.6 % (11.5-14.5); White Blood Count 8.3 K/mm3 (4.5-10.0)
[2023-09-15 21:43] VITALS: BP 111/56; PULSE 75; RESP 20; TEMP 36.2; O2SAT 98
[2023-09-15 21:45] LABS: Alanine Aminotransferase 26 U/L (6-50); Albumin Level 4.3 g/dL (3.5-5.1); Alkaline Phosphatase 90 U/L (38-126); Anion Gap 6 mmol/L (8-16); Aspartate Amino Transferase 27 U/L (17-59); Bilirubin,Total 0.3 mg/dL (0.2-1.3); Blood Urea Nitrogen 19 mg/dL (9-20); Calcium 9.5 mg/dL (8.4-10.2); Carbon Dioxide 28 mmol/L (22-30); Chloride 103 mmol/L (98-107); Estimated Glomerular Filt Rate > 60; Glucose 119 mg/dL (65-110); INR 1.8; Lipase 137 U/L (23-300); Potassium 3.7 mmol/L (3.4-5.0); Prothrombin Time 21.7 Seconds (11.1-14.7); Sodium 137 mmol/L (137-145)
[2023-09-15 21:46] LABS: Partial Thromboplastin Time 49.5 SECONDS (22.3-36.8)
[2023-09-15 21:56] LABS: Troponin I < 0.012 ng/mL (0.000-0.034)
--- NOTE | 2023-09-15 23:21 | PC.NURSE ---
patient states he feels better and decided to leave and see PMD in morning
== END 2023-09-15 23:21 | disposition left against medical advice (07) ==
PROVIDERS: Emergency Provider Emergency Medicine; PCP Family Medicine
DX: I48.91 Unspecified atrial fibrillation (principal)
CPT/HCPCS: 36415; 71046; 80053; 83690; 84484; 85025; 85610; 85730; 93005; 99199

== ENCOUNTER 2025-03-24 00:47 | Day surgery (SDC) | payer OTHER, SELFPAY ==
[2025-03-23 16:30] VITALS: BMI 26.1
[2025-03-24] VITALS (17 sets, daily range): BP systolic 128–182; BP diastolic 58–87; PULSE 61–76; RESP 12–22; TEMP 36.4; O2SAT 96–100
[2025-03-24 07:37] LABS: Hematocrit 46.8 % (42.0-52.0); Hemoglobin 15.1 g/dL (14.0-18.0); Immature Granulocyte Percent A 0.4 % (0-0.5); Lymphocytes Absolute Auto 2.06 K/mm3 (0.9-3.2); Mean Corpuscular HGB Conc 32.3 g/dl (32-36); Mean Corpuscular Hemoglobin 29.6 pg (26-34); Mean Corpuscular Volume 91.8 fl (80-100); Nucleated Red Blood Cells Absolute Auto 0.000 K/mm3 (0.0-0.012); Nucleated Red Blood Cells Perc 0.0 % (0.0-0.2); Platelet Count Result 211 k/mm3 (150-375); Red Blood Count 5.10 M/mm3 (4.6-6.20); White Blood Count 7.9 K/mm3 (4.5-10.0)
[2025-03-24 07:55] LABS: Anion Gap 6 mmol/L (4-12); Blood Urea Nitrogen 15 mg/dL (9-20); Calcium 9.4 mg/dL (8.4-10.2); Carbon Dioxide 30 mmol/L (22-30); Chloride 103 mmol/L (98-107); Estimated CRCL calculation 46 ml/min; Estimated Glomerular Filt Rate 59; Glucose 99 mg/dL (65-110); Potassium 4.2 mmol/L (3.4-5.0); Sodium 139 mmol/L (137-145)
--- NOTE | 2025-03-24 08:51 | WPDHPUPDATE1 ---
History and Physical Update Update Date/Time: 03/24/25 08:21 History and Physical has been reviewed, including an updated exam of the patient. There are NO changes in the patient's condition. Risks, benefits, and alternatives have been discussed and questions answered. Patient agrees to proceed with procedure.
--- NOTE | 2025-03-24 08:52 | WPDMODSED ---
Moderate Sedation Note-Pt Data Patient Data Allergies Allergy/AdvReac Type Severity Reaction Status Date / Time No Known Allergies Allergy Verified 03/24/25 07:17 Home Medications ?Medication ?Instructions ?Recorded ?Confirmed ?Type diltiazem HCl 120 mg capsule,24 120 mg PO QAM #30 caps 09/10/23 03/23/25 Rx hr,extended release rivaroxaban 20 mg tablet (Xarelto) 20 mg PO DAILY@1700 #30 tabs 09/10/23 03/23/25 Rx rosuvastatin 10 mg tablet See Rx Instructions .Route 01/04/25 03/23/25 Rx .COMPLEX #90 tabs testosterone 4 pump topical DAILY #150 grams 03/08/25 03/23/25 Rx bupropion HCl 150 mg tablet,12 hr 150 mg PO BID #180 tabs 03/22/25 03/23/25 Rx sustained-release Current Medications: Active Medications Sodium Chloride (Normal Saline Iv) 500 mls @ 100 mls/hr IV CONT .Q5H BILLY Sedation/Anesthesia: No previous sedation/anesthesia problems (including family history). [facility] Past Medical History Medical History Low testosterone Atrial flutter COVID-19 BPH (benign prostatic hyperplasia) Hypovitaminosis D History of tobacco use Erectile dysfunction Essential (primary) hypertension History of CVA (cerebrovascular accident) Mixed hyperlipidemia LEXIE (obstructive sleep apnea) Family History Family History Sibling Family history of coronary artery disease Patient's brother is Father Patient's father is Other Carcinoma of colon Colon polyp Social History Social History Years smoked: 50 Smoking status: Current some day smoker Tobacco type: cigarettes Additional smoking assessment comments: Per patient he only smokes on the golf coarse. Alcohol intake: current Drinks per week: 9 Alcohol use details: socially Substance use: never Substance use type: does not use Do You Feel Safe in your Home?: Yes Lack of Transportation: No Lack of Food: Never True Current Housing: I Have Housing Concerned About Future Housing: No Difficulty Paying Gas/Electric Bills: No Difficulty Paying for Meds: No Currently Unemployed: No Education: Associate Degree Difficulty w/ Childcare or Family Care: No Living arrangements: alone Spiritual care concerns: No Mod Sed Physical Exam Physical Exam Pre Procedural Exam: Normal: Lungs, Heart Rate and Heart Rhythm Hours since solid foods: 12 Hours since liquid intake: 12 Mallampati Classification: class II Internal Medicine - PN: Obj Da Vital Signs Vital Signs: Vital Signs - 24 hr 03/24/25 07:21 Temperature 36.4 C L Pulse Rate 72 Respiratory Rate 16 Blood Pressure 182/87 H Pulse Oximetry 99 Oxygen Delivery Room Air Meds/Results Medications: Active Medications Generic Name Dose Route Start Last Admin Trade Name Freq PRN Reason Stop Dose Admin Sodium Chloride 500 mls @ 100 mls/hr 03/24/25 07:30 Normal Saline Iv IV CONT .Q5H BILLY Labs 03/24/25 07:27 03/24/25 07:27 Labs: Laboratory Results - last 24 hr 03/24/25 07:27 WBC 7.9 RBC 5.10 Hgb 15.1 Hct 46.8 MCV 91.8 MCH 29.6 MCHC 32.3 RDW 13.3 Plt Count 211 MPV 9.4 Immature Gran % (Auto) 0.4 Neut % (Auto) 58.0 Lymph % (Auto) 26.1 Butler % (Auto) 10.9 H Eos % (Auto) 4.3 Baso % (Auto) 0.3 Lymph # (Auto) 2.06 Butler # (Auto) 0.9 H Eos # (Auto) 0.3 Baso # (Auto) 0.0 Abs Immat Gran (auto) 0.03 Absolute Neuts (auto) 4.6 Absolute Nucleated RBC 0.000 Nucleated RBC % 0.0 Sodium 139 Potassium 4.2 Chloride 103 Carbon Dioxide 30 Anion Gap 6 BUN 15 Creatinine 1.18 Estim Creat Clear Calc 46 Estimated GFR 59 Glucose 99 Calcium 9.4 ASA Classification/Sedation ASA Classification/Sedation ASA Class: III Emergent: No Risks: Risks, benefits and alternatives explained and patient/family accepted plan for sedation. Patient re-evaluated immediately prior to sedation.
--- NOTE | 2025-03-24 09:49 | P.PCNCC_ITS ---
Cardiac Cath Procedure Note Date of procedure:: 03/24/25 Performing physician:: CATHETERIZATION LABORATORY REPORT Procedure Date: 03/24/2025 Referring Physician: Dr. Rodriguez Anesthesia: Versed and Fentanyl were ordered and given in my presence at 0926, procedure ended at 0942. Supervision of nurse monitored moderate sedation with 2mg Versed and 50mcg Fentanyl was provided for 16 minutes. Pre-op Diagnosis: Abnormal echocardiogram Post-op Diagnosis: Abnormal echocardiogram Procedure(s): Left heart catheterization with coronary angiography Access Site: Right radial artery Brief History and Clinical Indications: All risks, benefits and alternatives to left heart catheterization with or without percutaneous coronary intervention was discussed at length with the patient. Risk of complications including but not limited to bleeding, infection, arrhythmia, stroke, worsening kidney function, blood loss, groin hematoma, limb loss, emergency coronary artery bypass grafting, and even were discussed w ith the patient and all questions were answered. The patient understood and wished to proceed. Time out called, patient name, date of , medical record number, allergies, procedure performed, identify Broom Maker, patient and staff member concurred with accurate data, procedure carried on. Findings: LEFT HEART CATHETERIZATION FINDINGS: 1. Left main: The left main coronary artery has diffuse 10% stenosis. 2. Left anterior descending: The LAD has diffuse 20-30% stenosis in its proximal to mid body with luminal irregularities in the remainder of the LAD and its pain branches. The 1st diagonal branch is small and insignificant. The 2nd diagonal branch is moderate caliber supplying a moderate territory with diffuse 10% stenosis. 3. Left circumflex: The left circumflex artery and the main marginal branches have diffuse 20-30% stenosis. 4. Right coronary artery: The RCA is a large dominant vessel with diffuse 20-30% stenosis. The ostium is ectatic. 5. Left ventricle: A. End-diastolic pressure 17 mmHg. B. LV gram deferred. C. No significant gradient across aortic valve on catheter pullback. 6. Opening AO pressure 99/62 and closing AO pressure 122/58 Description of Procedure: Informed consent signed and placed in the chart. Patient transferred to laboratory equipment cleaner room. Prepped and draped in usual sterile fashion. 2% lidocaine injected subcutaneously in right wrist area. 22-gauge venipuncture catheter used to access the right radial artery with the Seldinger technique. 6-FR slender sheath placed in right radial artery. Nitroglycerin 200mcg, Verapamil 2.5mg, and Heparin 5000U was given intraarterial through the sheath. J wire advanced under fluoroscopy. 5F Ultra diagnostic catheter engaged the Right Coronary Artery and Left Main Coronary Artery. Multiple orthogonal angiogram obtained and reviewed. 5F Pigtail catheter crossed aortic valve to obtain LVEDP, LV angiogram deferred. Hemostasis was achieved by application of TR band. Assessment: Mild coronary artery disease Post Operative Condition: Stable No significant blood loss Disposition: Home Plan: Recommend aggressive lipid-lowering strategy. Continue aggressive medical therapy. Can resume Xarelto tomorrow. The above findings were discussed with the referring physician. Aiden Quiñonez Interventional Cardiology
== END 2025-03-24 13:55 | disposition home or self-care (01) ==
PROVIDERS: PCP Nurse Practitioner Family; Visit Provider Internal Medicine
PROC: 4A023N7 Measurement of Cardiac Sampling and Pressure, Left Heart, Percutaneous Approach (ICD-10-PCS; CPT 93452; principal; 2025-03-24 08:30)
DX: I25.10 Atherosclerotic heart disease of native coronary artery without angina pectoris (principal); R93.1 Abnormal findings on diagnostic imaging of heart and coronary circulation; Z79.01 Long term (current) use of anticoagulants; Z72.0 Tobacco use
CPT/HCPCS: 36415; 80048; 85025; 93458; C1769; C1887; C1894; J1644; J2003; J2250; J2305; J3010; J7040

== ENCOUNTER 2025-05-04 08:44 | Outpatient (CLI) | payer OTHER, SELFPAY ==
--- NOTE | 2025-05-09 11:37 | P.SLEEP_ITS ---
Sleep Study Date of Study: 05/04/25 Ordering Provider: Mony Samuel APRN Interpreting Physician: Davida Pierre DO Sleep Study Type: Split Polysomnogram Height: 1.8 m Weight: 80.739 kg Body Mass Index: 24.8 Neck Circumference (inches): 16 [place]: 7 Reason for Sleep Study Dream enactment behavior Sleep History The patient is an 80-year-old male that had a sleep study ordered by his primary care for evaluation of dream enactment behavior. He denies awakening from sleep short of breath. He occasionally awakens at night with heartburn, belching or cough. He frequently snores and is frequently loud enough that others complain. He rarely has trouble sleeping when he has a cold. He denies waking up gasping for air throughout the night. He denies having breathing problems at night observed by himself or others. He denies sweating excessively at night. He denies having heart palpitations or irregular heartbeats during the night. He occasionally falls asleep during the day but never while driving. He denies sleep paralysis, cataplexy and hypnagogic/ hypnopompic hallucinations. He denies having trouble at school or work due to sleepiness. He denies feeling afraid of going to sleep. He denies having nightmares. He rarely remembers his dreams. He occasionally has thoughts racing through his mind. He rarely feels sad, depressed or anxious. He denies having muscular tension. He denies noticing parts of his body jerk. He occasionally kicks during the night. He denies having crawling and aching feelings in his legs and denies having leg pain during the night. He denies grinding his teeth during sleep and denies awakening with morning jaw pain. He denies being bothered by pain during the day and denies being awakened by pain during the night. He rarely wakes up feeling stiff in the morning. He rarely wakes up with sore or achy muscles. He rarely wakes up with pain in the neck, spine and other joints. He goes to bed at 8:30 p.m. every night. It takes him 30 minutes to fall asleep. He wakes up twice throughout the night to urinate is able to fall back asleep within 5 minutes. He wakes up at 6:00 a.m. every morning. He typically gets 7-8 hours of sleep per night. He will stay in bed for a few minutes after waking up in the morning. He currently lives with his . He denies consuming any caffeinated beverages within 2 hours of bedtime. He denies engag ing in physical exercise before bedtime. He will read before falling asleep. He denies watching television before falling asleep. He will take naps in afternoon or the evening but they are not refreshing. He consumes 2 caffeinated beverages per day. He currently smokes half a pack of cigarettes per day. He consumes 3 alcoholic beverages per day. FORMERLY [facility], 1928–1983 Past Medical History Medical History Emphysema lung seen on lung ct Sensation of fullness in both ears Low testosterone Atrial flutter COVID-19 BPH (benign prostatic hyperplasia) Hypovitaminosis D History of tobacco use Erectile dysfunction Essential (primary) hypertension History of CVA (cerebrovascular accident) Mixed hyperlipidemia LEXIE (obstructive sleep apnea) Family History Family History Sibling Family history of coronary artery disease Patient's brother is Father Patient's father is Other Carcinoma of colon Colon polyp Social History Social History Years smoked: 50 Smoking status: Current some day smoker Tobacco type: cigarettes Additional smoking assessment comments: Per patient he only smokes on the golf coarse. Alcohol intake: current Drinks per week: 9 Alcohol use details: socially Substance use: never Substance use type: does not use Do You Feel Safe in your Home?: Yes Lack of Transportation: No Lack of Food: Never True Current Housing: I Have Housing Concerned About Future Housing: No Difficulty Paying Gas/Electric Bills: No Difficulty Paying for Meds: No Currently Unemployed: No Education: Associate Degree Difficulty w/ Childcare or Family Care: No Living arrangements: alone Spiritual care concerns: No Medications Home Medications ?Medication ?Instructions ?Recorded ?Confirmed ?Type diltiazem HCl 120 mg capsule,24 120 mg PO QAM #30 caps 09/10/23 04/13/25 Rx hr,extended release rosuvastatin 10 mg tablet See Rx Instructions .Route 0 01/04/25 04/13/25 Rx .COMPLEX #90 tabs bupropion HCl 150 mg tablet,12 hr 150 mg PO BID #180 t abs 03/22/25 04/13/25 Rx sustained-release rivaroxaban 20 mg tablet (Xarelto) 20 mg PO DAILY@1700 #30 tabs 03/24/25 04/13/25 Rx albuterol sulfate 90 mcg/actuation 2 inh inhalation Q4 H PRN shortness 04/13/25 04/13/25 Rx aerosol inhaler of breath or wheezing #8.5 g sylwia amoxicillin 875 mg-potassium tablet PO 04/13/25 History clavulanate 125 mg tablet azithromycin 250 mg tablet See Rx Instructions PO .COM PLEX #6 04/13/25 04/13/25 Rx tabs benzonatate 200 mg capsule mg PO 04/13/25 04/13/25 His tory dextromethorphan-guaifenesin 30 See Rx Instructions PO Q12H PRN 04/13/25 04/13/25 Rx mg-600 mg tablet extended cough #20 tabs [id number] hr (Mucinex DM) prednisone 20 mg tablet 40 mg (2 x 20 mg) PO DAILY # 10 tabs 04/13/25 04/13/25 Rx testosterone 30 mg/actuation (1.5 4 pump topical DAILY #180 mL 04/21/25 Rx mL) transderm solution metered pump Sleep Procedure A full night split study using the [employer] multi-channel system recorded the standard physiologic parameters including EEG, EOG, submentalis EMG, anterior tibialis EMG, EKG, body position, nasal and oral airflow using nasal pressure sensor and thermistor.? Respiratory parameters of chest and abdominal movements were recorded with Respiratory Inductance Plethysmography belts. Oxygen saturation was recorded by pulse oximetry. Video monitoring was also performed. Sleep stages, periodic limb movements, and EEG arousals were scored in 30 second epochs according to the criteria of the AASM Scoring Manual. The Apnea-Hypopnea Index was calculated using CMS guidelines for definition of hypopnea with 4% O2 desaturations while scoring respiratory events. Sleep Architecture During the diagnostic portion of the study, the total recording time was 249.9 minutes. The total sleep time was 132.0 minutes. Sleep latency was 18.4 minutes.? REM sleep was not achieved during this porion of the study. Sleep Efficiency was 52.8%. The patient had 47 awakenings for an awakening index of 21.4. Wake after sleep onset time was 99.5 minutes. The patient spent 59.5 minutes, 45.1% of total sleep time in Stage N1. The patient spent 72.5 minutes, 54.9% in Stage N2. The patient spent 0.0 minutes, 0.0% in Stage N3. The patient spent 0.0 minutes, 0.0% in Stage REM sleep. At 12:13:14 AM the patient was placed on PAP treatment and was titrated at pressures ranging from 5 cm H20 up to 12 cm H20. During the treatment portion of the study, the total recording time was 312.3 minutes.? The total sleep time was 172.0 minutes. Sleep latency was 20.5 minutes. REM latency was 82.5 minutes. Sleep Efficiency was 55.1%. Wake after Sleep Onset time was 119.5 minutes. The patient spent 37.5 minutes, 21.8% of total sleep time in Stage N1. The patient spent 70.5 minutes, 41.0% in Stage N2. The patient spent 1.5 minutes, 0.9% in Stage N3. The patient spent 62.5 minutes, 36.3% in Stage REM. Gross movement of the patient's right upper extremity (seen on video) was present on Epochs 978, 980 and 1047. Head movement and sleep talking was present on Epoch 1024. Respiratory Analysis During the diagnostic portion of the study, the patient had 83 hypopneas, 1 o bstructive apnea, 2 mixed apneas, and 4 central apneas for an overall Apnea Hypopnea Index of 40.5 events per hour. The REM Apnea Hypopnea Index was 0. The NREM Apnea Hypopnea Index was 40.5. The patient had a Central Apnea Hypopnea Index of 1.8. There was no evidence of Yvan-Acosta Respirations. During the treatment portion of the study, the patient had 15 hypopneas, 2 obstructive apneas, 22 mixed apneas, and 37 central apneas for an overall Apnea Hypopnea Index of 26.5 events per hour. The REM Apnea Hypopnea Index was 18.2. The NREM Apnea Hypopnea Index was 31.2. The patient had a Central Apnea Hypopnea Index of 12.9. Yvan-Acosta Respirations were present. He had a cycle length of 43.4 seconds and a circulation time of 29.8 seconds. The patient was started on CPAP 5 cm H2O and titrated to CPAP 12 cm H2O due to central/mixed apneas and hypopneas. The patient was able to fall asleep starting on CPAP 5 cm H2O. The patient was able to achieve REM sleep starting on CPAP 7 cm H2O. On CPAP 10 cm H2O, the patient spent 29.5 minutes in NREM and 3.5 minutes in REM with 1 mixed apnea and 3 hypopneas, resulting in an AHI of 5.6. The patient had a sleep efficiency of 87.8% on this pressure setting. Arousals During the diagnostic portion of the study, there were a total of 123 arousals for an arousal index of 55.9.? There were 57 respiratory arousals for an index of 25.9. There were 13 periodic limb movement arousals for an index of 5.9.? There were 20 isolated limb movement arousals for an index of 9.1. There were 33 spontaneous arousals for an index of 15.0. During the treatment portion of the study, there were a total of 92 arousals for an index of 32.1.? There were 43 respiratory arousals for an index of 15.0. There were 18 periodic limb movement arousals for an index of 6.3.? There were 13 isolated limb movement arousals for an index of 4.5. There were 19 spontaneous arousals for an index of 6.6. Periodic Limb Movements During the diagnostic portion of the study, the patient had 51 isolated limb movements with an index of 23.2. The patient had 82 periodic limb movements with an index of 37.3, which is elevated (normal < 15). The patient had a total of 133 limb movements with a total limb movement index of 60.5. During the treatment portion of the study, the patient had 75 isolated limb movements with an index of 26.2. The patient had 148 periodic limb movements with an index of 51.6, which is elevated (normal < 15). The patient had a total of 223 limb movements with a total limb movement index of 77.8. Oximetry Data During the diagnostic portion of the study, the patient had an average oxygen saturation of 92.8% in wake with a minimum oxygen saturation of 83% and a maximum oxygen saturation of 99%. The patient had an average oxygen saturation of 91.6% in sleep with a minimum oxygen saturation of 86.0% and a maximum oxygen saturation of 97.0%. The patient had 109 oxygen desaturations resulting in an Oxygen Desaturation Index of 50.0. The patient spent 5.2 minutes, 2.1% of total sleep time with an oxygen saturation less than 88%. During the treatment portion of the study, the patient had an average oxygen saturation of 93.3% in wake with a minimum oxygen saturation of 86.0% and a maximum oxygen saturation of 98.0%. The patient had an average oxygen saturation of 92.5% in sleep with a minimum oxygen saturation of 85.0% and a maximum oxygen saturation of 98.0%. The patient had 83 oxygen desaturations resulting in an Oxygen Desaturation Index of 29.0. The patient spent 0.9 minutes, 0.3% of total sleep time with an oxygen saturation less than 88%. Snoring Profile Mild to moderate snoring was present in the baseline portion of the study. The snoring resolved once the patient was titrated to CPAP 7 cm H2O. Cardiac Profile The EKG lead showed normal sinus rhythm with occasional PVCs and intermittent bigeminy and trigeminy. During the diagnostic portion of the study, the average pulse rate was 76.1 bpm.? The minimum pulse rate was 61.0 bpm. The maximum pulse rate was 85.0 bpm. During the treatment portion of the study, the average pulse rate was 68.0 bpm.? The minimum pulse rate was 34.0 bpm. The maximum pulse rate was 81.0 bpm. EEG Profile No signs of seizure activity seen. Assessment and Plan Assessment and Plan (1) Treatment-emergent central sleep apnea: Code(s): T81.89XA - Other complications of procedures, not elsewhere classified, initial encounter; G47.33 - Obstructive sleep apnea (adult) (pediatric); G47.37 - Central sleep apnea in conditions classified elsewhere Status: Acute Assessment and Plan: In the baseline portion of the study, the patient had an overall AHI of 40.5,central apnea index of 1.8 and desaturation down to 86%. This is consistent with severe sleep apnea. The patient was started on CPAP 5 cm H2O and titrated to CPAP 12 cm H2O due to central/mixed apneas and hypopneas. The patient had central apneas when starting on CPAP 5 cm H2O. As the pressure increased, the frequency of the central apneas increased. I recommend that the patient be prescribed CPAP 10 cm H2O, size medium F&P solo nasal pillows, CPAP filters/tubing and heated humidity. If the patient has a residual AHI >10 with mostly central apneas at his first compliance visit, an ASV titration should be considered if his ejection fraction is above 45%. This should be used with all episodes of sleep.? Compliance should be reviewed within 31-90 days of starting therapy for usage greater than 4 hours per night greater than 70% of the nights. The patient should be asked about symptoms such as?excessive daytime sleepiness, quality of sleep, decreased nocturia, increased?mental functioning such as memory, mood, and concentration. (2) REM behavioral disorder: Code(s): G47.52 - REM sleep behavior disorder Status: Acute Assessment and Plan: Gross movement of the patient's right upper extremity (seen on video) was present on Epochs 978, 980 and 1047. Head movement and sleep talking was present on Epoch 1024. The patient had REM without atonia present on the epochs listed previously. REM without atonia, gross movement of extremities seen on video and the patient's clinical history supports the diagnosis of REM Behavioral Disorder. Rapid eye movement (REM) sleep behavior disorder (RBD) is a parasomnia characterized by dream enactment that emerges after a loss of REM sleep atonia. Behaviors are brief, correlate with dream mentation, mainly occur in the second half of the night, and, when violent, can result in injury to the patient or bed partner.?The prevalence of RBD is estimated at 0.5 to 1.25 percent in the general population, with higher frequencies among older adults and those with Parkinson disease (PD), multiple system atrophy, and dementia with Lewy bodies. Most cases of RBD are caused by alpha-synuclein neurodegeneration. RBD is also caused by antidepressant medications, narcolepsy, and pontine lesions such as those from stroke or multiple sclerosis. All patients with RBD and their bed partners should be counseled on ways to alter the sleeping environment to prevent injury.? The frequency of dream enactment behaviors is not predictive of injury, so all patients with RBD and their bed partners should be counseled on modifying the sleeping environment to prevent injury. For patients with mild symptoms, this may be all that is needed. The punching, kicking, and jumping behaviors can result in hematomas, fractures, lacerations, and joint dislocations. Bed partners are frequently the target of violent dream enactment, and RBD has rarely been implicated in charges of domestic assault. Firearms should not be accessible, and sharp or easily breakable furniture and objects (such as lamps) should be removed from the immediate sleeping area. In the event of continued vigorous behaviors, sleeping alone is advised. Many patients resort to using padded bed rails or sleeping in a sleeping bag. Exiting the bed while acting out a dream is a high-risk behavior that may result in traumatic injury. All patients with frequent, disruptive, or injurious behaviors should be treated with pharmacotherapy to reduce behaviors and lower risk of injury. Melatonin is our preferred first-line therapy in patients with frequent, disruptive or injurious behaviors. Patients should be started on 3 mg of melatonin at bedtime and the dose should be increased by 3 mg every week until dream enactment behavior resolves. The dose of melatonin required to suppress behaviors in patients with RBD varies. In our experience, most patients achieve significant improvement with doses ranging from 6 to 18 mg nightly.? I recommend referring the patient to Sleep Medicine due to the complexity and severity of his sleep issues. Data The data obtained during this sleep study is adequate for interpretation. Certification This sleep study has been reviewed by a board certified sleep medicine physician.
[2025-05-09 11:38] VITALS: BMI 24.8
== END 2025-05-05 06:32 | disposition home or self-care (01) ==
PROVIDERS: PCP Nurse Practitioner Family; Visit Provider Nurse Practitioner Family
DX: T81.89XA Other complications of procedures, not elsewhere classified, initial encounter (principal); G47.52 REM sleep behavior disorder; G47.37 Central sleep apnea in conditions classified elsewhere
CPT/HCPCS: 95811

== ENCOUNTER 2025-05-28 19:41 | Emergency (ER) | payer OTHER, SELFPAY ==
--- OUTSIDE RECORDS SUMMARY | 2004-02-13 02:45 | XMS_ITS | Continuity of Care Document ---
Author Organization [facility] Address [address] [place] [address] [place] [address] Phone Care Team Providers Care Runner Worker Name Role Phone Tae Kellogg DO Unavailable Unavailable Advance Directives Directive Yes / No Effective Date File Name No Information Encounters Encounter Description Practice Location Reason(s) For Visit Diagnoses Date Provider Providers Copied on Encounter [facility], [address], [place], [place], [id number], [place] tel:[phone] SEC [facility] No Information Bess Means. [address] [facility], [place], [address], [place]. tel: [phone] Family History Family Member Type Diagnosis Age At Onset No Information Payers Payer name Insurance type Covered alliance party ID Authoriza tion(s) No Information Social History Type Description Quantity Date Captured Comments Sex Male Smoking Status No Information Chief Complaint And Reason For Visit No Information Reason For Referral Reason For Referral No Information History Of Present Illness Encounter Date Complaint History Of Prese nt Illness No Information Functional Status Date Functional Assessmen t No Information Instructions Date Instruction Additional Infor mation No Information Assessments Type Assessment Date No Information Patient Care Teams Name Effective Dates (start - stop) Status Members No Information
--- OUTSIDE RECORDS SUMMARY | 2004-02-13 02:45 | XMS_ITS | Continuity of Care Document ---
Author Organization [facility] Address [address] [place] [address] [place] [address] Phone Care Team Providers Care Information Strategist Name Role Phone Tae Kellogg DO Unavailable Unavailable Advance Directives Directive Yes / No Effective Date File Name No Information Encounters Encounter Description Practice Location Reason(s) For Visit Diagnoses Date Provider Providers Copied on Encounter [facility], [address], [place], [place], [id number], [place] tel:[phone] [facility] No Information Bess Means. [address] [facility], [place], [address], [place]. tel: [phone] Family History Family Member Type Diagnosis Age At Onset No Information Payers Payer name Insurance type Covered democrat ID Authoriza tion(s) No Information Social History [...]
--- NOTE | ~2025-05-28 | CT_ITS ---
CT HEAD NON-CONTRAST CT C-SPINE Clinical History: HEAD INJURY, ON XARELTO Comparison: None Technique: Unenhanced axial images skull base to vertex. Coronal, sagittal reformats. Axial images thoracic inlet to skull base. Sagittal and coronal reformats. CT images acquired with automatic exposure control for dose reduction DLP: 681 mGy-cm Findings: Head: Mild white matter chronic microvascular ischemic changes. Sulci, ventricles: Unremarkable. No intracerebral hemorrhage. No evidence acute territorial infarct. No mass effect, midline shift, intra-/extra-axial fluid collection. Bony calvarium intact. Visualized paranasal sinuses: Clear. Mastoid air cells: Clear. C-spine: No acute fracture. Grade 1 anterolisthesis of C5 on 6. Moderate degenerative changes. Disc spaces maintained. Prevertebral soft tissues within normal limits. Visualized lung apices: Emphysema. Visualized thyroid: Unremarkable. No enlarged cervical nodes. IMPRESSION: HEAD: 1. No acute intracranial findings. C-SPINE: 1. No acute fracture. Reviewed, dictated and finalized at location R. OTIONS FIRM ACCOUNTS MANAGER IMPRESSION: HEAD: 1. No acute intracranial findings. C-SPINE: 1. No acute fracture.
--- NOTE | ~2025-05-28 | XR_ITS ---
Examination: XR chest 1V Clinical History: syncope, cough Comparison: 09/15/2023 Technique: Portable AP Findings: Heart size normal. Lungs clear. No acute bony abnormality. IMPRESSION: 1. No acute cardiopulmonary findings given portable technique. Reviewed, dictated and finalized at location R. AL CLIMATE CHANGE ANALYST
--- OUTSIDE RECORDS SUMMARY | 2025-05-28 19:44 | XMS_ITS | Clinical Summary ---
Author Organization [facility] System Address [address] [place] [id number] Care Team Providers Care Section Beamer Name Role Phone Unavailable Primary Care Provider Unavailabl e Social History Tobacco Use Types Packs/Day Years Used Date Smoking Tobacco: Never Assessed Sex and Gender Information Value Date Recorded Sex Assigned at Not on file Legal Sex Male 5:02 PM CDT Gender Identity Not on file Sexual Orientation Not on file Plan of Treatment Health Maintenance Due Date Last Done Comments DTaP, Tdap and Td Vaccines ( 1 - Tdap) 1962 Pneumococcal Vaccine: 50+ Ye ars (1 of 1 - PCV) 1993 Zoster Vaccines (1 of 2) 1993 RSV Immunization or 60+ Years (1 - 1-dose 75+ series) 2018 COVID-19 Vaccine ( - 2024-2 6 season) 2025 Influenza Adult (#1) 2025 Hepatitis A Vaccines Aged Out No long er eligible based on patient's age to complete this topic Meningococcal B Vaccine Aged Out No l onger eligible based on patient's age to complete this topic Meningococcal Vaccine Aged Out No minerva gwen eligible based on patient's age to complete this topic RSV Immunizations Under 20 Months Aged Out No longer eligible based on patient's age to complete this topic
--- OUTSIDE RECORDS SUMMARY | 2025-05-28 19:44 | XMS_ITS | Clinical Summary ---
Author Organization [facility], formerly [facility] Address [address] [place] [phone] Care Team Providers Care Hand Picker Name Role Phone Abhilash Bey MD Primary Care Provider [phone] Allergies No known active allergies Medications buPROPion SR (WELLBUTRIN SR) 150 mg 12 hr tablet Take 1 tablet (150 mg total) by mouth 2 (two) times a day 06/29/2023 Active rosuvastatin (CRESTOR) 10 mg tablet Take 1 tablet (10 mg total) by mouth nightly 08/03/2023 Active polycarbophil (Fiber, calcium polycarbophil,) 625 mg tablet daily 10/04/2008 Activ e vit C/E/Zn/coppr/marc tein/zeaxan (PRESERVISION AREDS-2 ORAL) Take by mouth Active vitamin D3-vitamin K2 25 mcg (1,000 unit)-90 mcg tablet,disinteg rating Take by mouth Active calcium carbonate (OS-ASHLEY) 648 mg (260 mg elemental) tablet 260 mg Active diphenhydrAMINE -acetaminophen (TYLENOL PM) 25-500 mg tablet Take 2 tablets by mouth nightly Active diltiazem (Tiadylt ER) 180 mg 24 hr capsule Take 1 capsule (180 mg total) by mouth daily 90 capsule 11 10/11/2024 Active Xarelto 20 mg tablet TAKE 1 TABLET BY MOUTH EVERY DAY 90 tablet 1 01/24/2025 Active Active Problems Problem Noted Date Diagnosed Date Carotid artery stenosis, asymptomatic, left 10/2024 Essential hypertension 12/22/2023 History of stroke 12/22/2023 Chronic anticoagulation 12/22/2023 PAF (paroxysmal atrial fibrillation) 12/22/2023 LEXIE (obstructive sleep apnea) 12/22/2023 Mixed hyperlipidemia 12/22/2023 Dizziness 12/22/2023 Atrial flutter 12/14/2023 Typical atrial flutter 12/08/2023 Encounters Date Type Department Care Team Description 04/03/2025 Orders Only [facility] Cardiology [address] [place] [address] [address] [place] [phone] Aiden Quiñonez MD 03/24/2025 Orders Only [facility] [place] Information Management [address] [place] [id number] Scanning, Provider 03/13/2025 Telephone [facility] Cardiology [address] [place] [address] [place] [phone] Brad Davis MD 03/13/2025 Results Follow-Up [facility] Cardiology [address] [place] [address] [place] [phone] Brad Davis MD Transthoracic Echo (TTE) Complete W Doppler/CF 03/09/2025 11:15 AM CDT Ancillary Procedure [facility] Cardiology at [address] [place] [phone] PAF (paroxysmal atrial fibrillation); Essential hypertension 03/09/2025 9:00 AM CDT Office Visit [facility] Cardiology at [address] [place] [address] Brad Davis MD PAF (paroxysmal atrial fibrillation) (Primary Dx); Essential hypertension; Mixed hyperlipidemia; Chronic anticoagulation; History of stroke; LEXIE (obstructive sleep apnea) 03/02/2025 Results Follow-Up [facility] Cardiology [address] [place] [address] [place] [phone] Brad Davis MD US Carotids Duplex Bilateral 02/28/2025 8:00 AM CDT Ancillary Procedure [facility] Vascular and Vein Surgery at [address] [place] [address] Carotid artery stenosis, asymptomatic, left from Last 3 Months Surgical History Surgery Date Site/Laterality Comments CATARACT EXTRACTION COLONOSCOPY VASECTOMY 40+ yrs ago Medical History Medical History Date Comments Atrial fibrillation (HCC) Chest pain Hypertension Hyperlipidemia Stroke (HCC) GERD (gastroesophageal reflux disease) HL (hearing loss) Cataract Corrected with surgery 7 yrs ago LEXIE (obstructive sleep apnea) 12/22/2023 Family History Medical History Relation Name Comments Hypertension Father Miguel Angel Mendoza Dementia Mother Radha Jamison- Memory loss Mother Radha Jamison- Heart disease Sister Julius Jamison-pacemaker Relation Name Status Comments Father Miguel Angel Mendoza Mother Radha Jamison- Sister Julius Jamison-pacemaker Social History Tobacco Use Types Packs/Day Years Used Date Smoking Tobacco: Former Cigarettes 0.5 50 Q uit: 09/21/2023 Smokeless Tobacco: Never Tobacco Cessation:Counseling Given: Not Answered Comments:Very rare occasions, when golfing occasionally AUDIT-C Answer Date Recorded Q1: How often do you have a drink containing alc ohol? 2-3 times a week 12/11/2023 Q2: How many drinks containi ng alcohol do you have on a typical day when you are drinking? 1 or 2 12/11/2023 Q3: How often do you have si x or more drinks on one occasion? Never 12/11/2023 Personal Safety Answer Date Recorded Have you ever been in or are you currently in a harmful physical or emotional relationship or is someone making you feel afraid or unsafe? Denies 12/14/2023 Sex and Gender Information Value Date Recorded Sex Assigned at Not on file Legal Sex Male 8:03 AM [employer] Gender Identity Not on file Sexual Orientation Not on file Last Filed Vital Signs Vital Sign Reading Time Taken Comments Blood Pressure 140/80 03/09/2025 9:06 AM CDT Pulse 71 03/09/2025 9:06 AM CDT Temperature 36.2 C (97.1 F) 12/14/2023 12:40 PM CDT Respiratory Rate 16 03/15/2024 9:55 AM CDT Oxygen Saturation 98% 03/09/2025 9:06 AM CDT Inhaled Oxygen Concentration - - Weight 79.8 kg (176 lb) 03/09/2025 9:06 AM CDT Height 180.3 cm (5' 11) 03/09/2025 9:06 AM CDT Body Mass Index 24.55 03/09/2025 9:06 AM CDT Plan of Treatment Health Maintenance Due Date Last Done Comments Depression Screening 1945 DTaP/Tdap/Td Vaccine (1 - Tdap) 1954 Hepatitis B Screening 1961 Zoster Vaccine (1 of 2) 1993 Well Visit 65+ 02/14/2008 Pneumococcal vaccine 65+ (2 of 2 - PCV) 02/16/2016 02/15/2015, 02/01/2015 Fall Risk Assessment 12/13/2024 12/14/2023 Covid-19 Vaccine (2024-2 6 season) 2025 02/21/2023, 05/05/2022, 10/28/2021, Additional history exists Influenza Vaccine (#1) 2025 , 05/05/2022, 04/06/2021, Additional history exists Medical Devices Implanted Type Area Receiving Clerk Device Identifier Shelf Expiration Date Model / Serial / Lot [employer] Vascade Mvp 6-12fr Venous Closure [id number] - [id number] Implanted:Qty: 1 on 12/14/2023 by Trace Monique MD at [facility] Right: Femoral Vein [employer] 09/14/2025 800-612C-[id number] [id number] / / [id number] [employer] Vascade Mvp 6-12fr Venous Closure [id number] - [id number] Implanted:Qty: 1 on 12/14/2023 by Trace Monique MD at [facility] Right: Femoral Vein [employer] 07/31/2025 800-612C-[id number] [id number] / / [id number] [employer] Vascade Mvp 6-12fr Venous Closure [id number] - [id number] Implanted:Qty: 1 on 12/14/2023 by Trace Monique MD at [facility] Right: Femoral Vein [employer] 07/31/2025 800-612C-[id number] / / [id number] Procedures Procedure Name Priority Date/Time Associated Diagnosis Comments CARDIOLOGY DOCUMENT SCAN Routine 03/24/2025 5:13 PM CDT CARDIOLOGY DOCUMENT SCAN 03/24/2025 SCAN - LABS 03/24/2025 TRANSTHORACIC ECHO (TTE) COMPLETE W DOPPLER/CF WO CONTRAST Routine 03/09/2025 11:31 AM CDT PAF (paroxysmal atrial fibrillation) Essential hypertension US CAROTIDS DUPLEX BILATERAL Schedule Routine, Read Routine (OP Routine) 02/28/2025 8:36 AM CDT Carotid artery stenosis, asymptomatic, left from Last 3 Months Results * Cardiology Document Scan (03/24/2025 5:13 PM CDT) Anatomical Region Laterality Modality Other us Aiden Quiñonez MD CV CARDIAC SERVICES PROCEDURES F inal Result * SCAN - LABS (03/24/2025) us Provider Scanning Final Result * Cardiology Document Scan (03/24/2025) Anatomical Region Laterality Modality Other us Provider Scanning CV CARDIAC SERVICES PROCEDURES Final Result * TRANSTHORACIC ECHO (TTE) COMPLETE W DOPPLER/CF WO CONTRAST (03/09/2025 11:31 AM CDT) Estimated EF 45-50 % CONS SCIMAGE EF Mod BP 45 % CONS SCIMAGE Anatomical Region Laterality Modality Ultrasound 03/09/2025 11:0 8 AM CDT Narrative 03/09/2025 5:51 PM CDT [facility] Medical [facility] Cardiology [address], [address], [place] [address] [phone] [phone] Echocardiographic Report Patient Name: MIGUEL ANGEL MENDOZA E : 1945 Study Date: 03/09/2025 11:08:29 AM Gender: M Supervisor Wheel Shop: JOEL Location: [facility] Ref Provider: BRAD DAVIS Height(Cm): 180 BSA: 2 Weight(Kg): 79.8 Heart Rate: 67 BP: 140 / 80 Quality: Good Order Provider: BRAD DAVIS PROCEDURES: Echocardiographic Report: Transthoracic echocardiogram with complete 2D, M-Mode, and color Doppler examination. With Strain Analysis. INDICATIONS: I48.0 Paroxysmal atrial fibrillation and I10 Essential (primary) hypertension. MEASUREMENTS: 2D/MM Value Range Doppler Value Range EF Mod BP 45 % [ 52 - 72 ] AV Mean PG 4 mmHg EF Teich MM 53 % [ 52 - 72 ] AV Peak Dilan 1.30 m/s [ 1.00 - 1.70 ] Estimated EF 45-50 % AV Peak PG 7 mmHg LV GLS -10.31 % AV VTI 27.93 cm LVIDd 2D 5.44 cm [ 4.20 - 5.80 ] LVOT Peak Dilan 1.18 m/s [ 0.70 - 1.10 ] LVIDd MM 6.83 cm [ 4.20 - 5.80 ] LVOT VTI 26.45 cm LVIDs 2D 3.91 cm [ 2.50 - 4.00 ] MV E Peak Dilan 0.85 m/s [ 0.60 - 1.30 ] LVIDs MM 4.90 cm [ 2.50 - 4.00 ] MV A Peak Dilan 1.02 m/s [ 1.00 - 1.20 ] LVPWd 2D 1.04 cm [ 0.60 - 1.00 ] MV Decel Time 263 msec [ 104 - 258 ] LVPWd MM 1.07 cm [ 0.60 - 1.00 ] PV Peak Dilan 0.90 m/s [ 0.40 - 0.80 ] IVSd 2D 1.25 cm [ 0.60 - 1.00 ] RV S` 0.10 m/s IVSd MM 1.32 cm [ 0.60 - 1.00 ] Lateral E` 0.07 m/s [ 0.10 - 0.15 ] LA Dimension MM 3.74 cm [ 3.00 - 4.00 ] Septal E` 0.06 m/s [ 0.08 - 0.15 ] AoR Diam MM 3.71 cm [ 3.10 - 3.70 ] E` 0.07 m/s LA Volume 57.31 ml [ 18.00 - 58.00 ] E/E` 13 LA Volume Index 29 cc/m2 [ 16 - 28 ] Tapse 1.98 cm [ 1.71 - 5.00 ] ACS MM 2.21 cm [ 1.50 - 2.60 ] RA Volume 34.19 ml 2D/MM Value Range Doppler Value Range - FINDINGS: Interpretation Site: Exam was interpreted at [facility]. Left Ventricle: Mild concentric left ventricular hypertrophy. Mild enlargement of left ventricle cavity. Mild global left ventricular systolic dysfunction. Impaired diastolic relaxation Grade I. Ejection fraction is measured at 45 %. Ejection Fraction is visually estimated to be 45-50 %. Global Longitudinal Strain is -10 %. GLS is abnormal. These segments of the LV are hypokinetic: Inferolateral segment. Resting Segmental Wall Motion Analysis: Total wall motion score is 1.29. There is hypokinesis of the entire anterolateral wall. There is hypokinesis of the entire inferolateral wall. The remaining left ventricular segments demonstrate normal wall motion. Right Ventricle: Normal right ventricular size. Normal right ventricular systolic function. Left Atrium: There is mild enlargement of left atrium. Right Atrium: The right atrium is normal in size. Atrial Septum: Normal atrial septum. Mitral Valve: Mild mitral annular calcification. Mild mitral valve regurgitation. There is no hemodynamically significant mitral stenosis by Doppler. Aortic Valve: No evidence of hemodynamically significant aortic stenosis by Doppler. Aortic cusps appear mildly calcified. Trileaflet aortic valve. Mild to moderate aortic valve regurgitation. Tricuspid Valve: Normal appearance of the tricuspid valve. Right ventricular systolic pressure could not be estimated due to inadequate visualization of the tricuspid regurgitation jet. Trivial regurgitation in the tricuspid valve. Pulmonic Valve: Normal appearance of the pulmonic valve. No pulmonic stenosis. Mild pulmonic regurgitation. Pericardium: Normal pericardium with no significant pericardial effusion. Aorta: Normal aortic root. IVC: Normal size and normal respiratory collapse consistent with normal right atrial pressure (<5 mmHg). CONCLUSIONS: Mild concentric left ventricular hypertrophy. Mild enlargement of left ventricle cavity. Mild global left ventricular systolic dysfunction. Impaired diastolic relaxation Grade I. Ejection fraction is measured at 45 %. Ejection Fraction is visually estimated to be 45-50 %. Global Longitudinal Strain is -10 %. GLS is abnormal. These segments of the LV are hypokinetic: Inferolateral segment. There is mild enlargement of left atrium. Mild mitral annular calcification. Mild mitral valve regurgitation. Aortic cusps appear mildly calcified. Mild to moderate aortic valve regurgitation. Mild pulmonic regurgitation. Normal sinus rhythm. Electronically Signed By: Brad Davis MD 03/09/2025 5:50:18 PM CDT Procedure Note Brad Davis MD - 03/09/2025 [facility] Medical Group Cardiology [facility], [place] [address] [phone] [phone] Echocardiographic Report Patient Name: MIGUEL ANGEL MENDOZA E : 1945 Study Date: 03/09/2025 11:08:29 AM Gender: M Supervisor Wheel Shop: JOEL Location: [facility] Ref Provider: BRAD DAVIS Height(Cm): 180 BSA: 2 Weight(Kg): 79.8 Heart Rate: 67 BP: 140 / 80 Quality: Good Order Provider: BRAD DAVIS PROCEDURES: Echocardiographic Report: Transthoracic echocardiogram with complete 2D, M-Mode, and color Dopplerexamination. With Strain Analysis. INDICATIONS: I48.0 Paroxysmal atrial fibrillation and I10 Essential (primary)hypertension. MEASUREMENTS: 2D/MM Value Range Doppler ValueRange EF Mod BP 45 % [ 52 - 72 ] AV Mean PG 4mmHg EF Teich MM 53 % [ 52 - 72 ] AV Peak Dilan 1.30m/s [ 1.00 - 1.70 ] Estimated EF 45-50 % AV Peak PG 7mmHg LV GLS -10.31 % AV VTI 27.93cm LVIDd 2D 5.44 cm [ 4.20 - 5.80 ] LVOT Peak Dilan 1.18m/s [ 0.70 - 1.10 ] LVIDd MM 6.83 cm [ 4.20 - 5.80 ] LVOT VTI 26.45cm LVIDs 2D 3.91 cm [ 2.50 - 4.00 ] MV E Peak Dilan 0.85m/s [ 0.60 - 1.30 ] LVIDs MM 4.90 cm [ 2.50 - 4.00 ] MV A Peak Dilan 1.02m/s [ 1.00 - 1.20 ] LVPWd 2D 1.04 cm [ 0.60 - 1.00 ] MV Decel Time 263msec [ 104 - 258 ] LVPWd MM 1.07 cm [ 0.60 - 1.00 ] PV Peak Dilan 0.90m/s [ 0.40 - 0.80 ] IVSd 2D 1.25 cm [ 0.60 - 1.00 ] RV S` 0.10m/s IVSd MM 1.32 cm [ 0.60 - 1.00 ] Lateral E` 0.07m/s [ 0.10 - 0.15 ] LA Dimension MM 3.74 cm [ 3.00 - 4.00 ] Septal E` 0.06m/s [ 0.08 - 0.15 ] AoR Diam MM 3.71 cm [ 3.10 - 3.70 ] E` 0.07m/s LA Volume 57.31 ml [ 18.00 - 58.00 ] E/E` 13 LA Volume Index 29 cc/m2 [ 16 - 28 ] Tapse 1.98cm [ 1.71 - 5.00 ] ACS MM 2.21 cm [ 1.50 - 2.60 ] RA Volume 34.19ml 2D/MM Value Range Doppler ValueRange - FINDINGS: Interpretation Site: Exam was interpreted at [facility]. Left Ventricle: Mild concentric left ventricular hypertrophy. Mild enlargement of leftventricle cavity. Mild global left ventricular systolic dysfunction. Impaired diastolicrelaxation Grade I. Ejection fraction is measured at 45 %. Ejection Fraction is visuallyestimated to be 45-50 %. Global Longitudinal Strain is -10 %. GLS is abnormal. Thesesegments of the LV are hypokinetic: Inferolateral segment. Resting Segmental Wall Motion Analysis: Total wall motion score is 1.29. There is hypokinesis of the entireanterolateral wall. There is hypokinesis of the entire inferolateral wall. The remaining leftventricular segments demonstrate normal wall motion. Right Ventricle: Normal right ventricular size. Normal right ventricular systolicfunction. Left Atrium: There is mild enlargement of left atrium. Right Atrium: The right atrium is normal in size. Atrial Septum: Normal atrial septum. Mitral Valve: Mild mitral annular calcification. Mild mitral valve regurgitation. Thereis no hemodynamically significant mitral stenosis by Doppler. Aortic Valve: No evidence of hemodynamically significant aortic stenosis by Doppler.Aortic cusps appear mildly calcified. Trileaflet aortic valve. Mild to moderate aorticvalve regurgitation. Tricuspid Valve: Normal appearance of the tricuspid valve. Right ventricular systolicpressure could not be estimated due to inadequate visualization of the tricuspidregurgitation jet. Trivial regurgitation in the tricuspid valve. Pulmonic Valve: Normal appearance of the pulmonic valve. No pulmonic stenosis. Mildpulmonic regurgitation. Pericardium: Normal pericardium with no significant pericardial effusion. Aorta: Normal aortic root. IVC: Normal size and normal respiratory collapse consistent with normal rightatrial pressure (<5 mmHg). CONCLUSIONS: Mild concentric left ventricular hypertrophy. Mild enlargement of leftventricle cavity. Mild global left ventricular systolic dysfunction. Impaired diastolicrelaxation Grade I. Ejection fraction is measured at 45 %. Ejection Fraction is visuallyestimated to be 45-50 %. Global Longitudinal Strain is -10 %. GLS is abnormal. Thesesegments of the LV are hypokinetic: Inferolateral segment. There is mild enlargement of left atrium. Mild mitral annular calcification. Mild mitral valve regurgitation. Aortic cusps appear mildly calcified. Mild to moderate aortic valveregurgitation. Mild pulmonic regurgitation. Normal sinus rhythm. Electronically Signed By: Brad Davis MD 03/09/2025 5:50:18 PM CDT Brad Davis MD CV ECHO PROCEDURES Final Result * US Carotids Duplex Bilateral (02/28/2025 8:36 AM CDT) Anatomical Region Laterality Modality Vascular Bilateral Ultrasound 02/28/2025 8:15 AM CDT Narrative 03/01/2025 11:24 AM CDT Vascular & Vein Surgery [address] [facility] [place] [address] Carotid Duplex Ultrasound Report Patient Name: MIGUEL ANGEL MENDOZA E : 1945 (80y ) Study Date: 02/28/2025 8:15:01 AM Gender: M Supervisor Wheel Shop: BELÉN Location: [facility] Ref Provider: BRAD DAVIS Quality: Adequate Order Provider: BRAD DAVIS PROCEDURES: Carotid Report: Carotid duplex examination of the extracranial arteries was performed using 2D, color and spectral Doppler. INDICATIONS: Follow up carotid disease. HISTORY: HTN. HLD. Afib. CVA. Former smoker. COMPARISONS: No change compared to prior study. The previous exam was completed on 12/28/23: Rt <50, Lt 50-69. MEASUREMENTS: Right Value Left Value RT Prox CCA PSV 64 cm/sec LT Prox CCA PSV 86 cm/sec RT Prox CCA EDV 7 cm/sec LT Prox CCA EDV 8 cm/sec RT Distal CCA PSV 57 cm/sec LT Distal CCA PSV 46 cm/sec RT Distal CCA EDV 6 cm/sec LT Distal CCA EDV 7 cm/sec RT Prox ICA PSV 101 cm/sec LT Prox ICA PSV 178 cm/sec RT Prox ICA EDV 11 cm/sec LT Prox ICA EDV 20 cm/sec RT Mid ICA PSV 96 cm/sec LT Mid ICA PSV 97 cm/sec RT Mid ICA EDV 14 cm/sec LT Mid ICA EDV 11 cm/sec RT Distal ICA PSV 105 cm/sec LT Distal ICA PSV 88 cm/sec RT Distal ICA EDV 10 cm/sec LT Distal ICA EDV 19 cm/sec RT ECA Prx PSV 199 cm/sec LT ECA Prx PSV 149 cm/sec RT ICA/CCA 1.84 ratio LT ICA/CCA 3.87 ratio Rt Vert Dst PSV 50 cm/sec Lt Vert Dst PSV 56 cm/sec FINDINGS: Rt Common Carotid Artery: The plaque in the right CCA appears to be heterogeneous. Rt Internal Carotid Artery: The plaque in the right internal carotid artery appears to be heterogeneous, calcified and smooth. Atherosclerotic changes of the right internal carotid artery without hemodynamically significant Doppler findings. <50% stenosis. Rt External Carotid Artery: Patent right external carotid artery with evidence of atherosclerotic disease present. Rt Vertebral Artery: The right vertebral artery is patent with antegrade flow. Lt Common Carotid Artery: The plaque in the left CCA appears to be heterogeneous. Lt Internal Carotid Artery: The plaque in the left internal carotid artery appears to be heterogeneous, calcified and smooth. Significant atherosclerotic changes of the left internal carotid artery with elevated peak systolic velocity and end diastolic velocity, as above. 50-69% stenosis. Lt External Carotid Artery: Patent left external carotid artery with evidence of atherosclerotic disease present. Lt Vertebral Artery: The left vertebral artery is patent with antegrade flow. Comments: Brachial artery systolic blood pressure is 158 on the right, 150 on the left. CONCLUSIONS: 1. The right internal carotid artery disease is consistent with a less than 50% stenosis. 2. The left internal carotid artery disease is consistent with moderate 50-69% stenosis. 3. Normal, antegrade flow is noted in bilateral vertebral arteries. ATTESTATION: I have reviewed and interpreted the pertinent images and measurements of this study. I attest to the conclusions in the final report that is provided above. Electronically Signed By: Kingsley Adkins MD 03/01/2025 10:39:20 AM CDT Procedure Note Kingsley Adkins MD - 03/01/2025 Vascular & Vein Surgery [address] [facility] [place] [address] Carotid Duplex Ultrasound Report Patient Name: MIGUEL ANGEL MENDOZA E : 1945 (80y ) Study Date: 02/28/2025 8:15:01 AM Gender: M Supervisor Wheel Shop: Location: [facility] Ref Provider: BRAD DAVIS Quality: Adequate Order Provider: BRAD DAVIS PROCEDURES: Carotid Report: Carotid duplex examination of the extracranial arterieswas performed using 2D, color and spectral Doppler. INDICATIONS: Follow up carotid disease. HISTORY: HTN. HLD. Afib. CVA. Former smoker. COMPARISONS: No change compared to prior study. The previous exam was completed on12/28/23: Rt <50, Lt 50-69. MEASUREMENTS: Right Value Left Value RT Prox CCA PSV 64 cm/sec LT Prox CCA PSV 86 cm/sec RT Prox CCA EDV 7 cm/sec LT Prox CCA EDV 8 cm/sec RT Distal CCA PSV 57 cm/sec LT Distal CCA PSV 46 cm/sec RT Distal CCA EDV 6 cm/sec LT Distal CCA EDV 7 cm/sec RT Prox ICA PSV 101 cm/sec LT Prox ICA PSV 178 cm/sec RT Prox ICA EDV 11 cm/sec LT Prox ICA EDV 20 cm/sec RT Mid ICA PSV 96 cm/sec LT Mid ICA PSV 97 cm/sec RT Mid ICA EDV 14 cm/sec LT Mid ICA EDV 11 cm/sec RT Distal ICA PSV 105 cm/sec LT Distal ICA PSV 88 cm/sec RT Distal ICA EDV 10 cm/sec LT Distal ICA EDV 19 cm/sec RT ECA Prx PSV 199 cm/sec LT ECA Prx PSV 149 cm/sec RT ICA/CCA 1.84 ratio LT ICA/CCA 3.87 ratio Rt Vert Dst PSV 50 cm/sec Lt Vert Dst PSV 56 cm/sec FINDINGS: Rt Common Carotid Artery: The plaque in the right CCA appears to beheterogeneous. Rt Internal Carotid Artery: The plaque in the right internal carotidartery appears to be heterogeneous, calcified and smooth. Atherosclerotic changes of the rightinternal carotid artery without hemodynamically significant Doppler findings. <50%stenosis. Rt External Carotid Artery: Patent right external carotid artery withevidence of atherosclerotic disease present. Rt Vertebral Artery: The right vertebral artery is patent with antegradeflow. Lt Common Carotid Artery: The plaque in the left CCA appears to beheterogeneous. Lt Internal Carotid Artery: The plaque in the left internal carotid arteryappears to be heterogeneous, calcified and smooth. Significant atherosclerotic changesof the left internal carotid artery with elevated peak systolic velocity and enddiastolic velocity, as above. 50-69% stenosis. Lt External Carotid Artery: Patent left external carotid artery withevidence of atherosclerotic disease present. Lt Vertebral Artery: The left vertebral artery is patent with antegradeflow. Comments: Brachial artery systolic blood pressure is 158 on the right, 150on the left. CONCLUSIONS: 1. The right internal carotid artery disease is consistent with a lessthan 50% stenosis. 2. The left internal carotid artery disease is consistent with -45% stenosis. 3. Normal, antegrade flow is noted in bilateral vertebral arteries. ATTESTATION: I have reviewed and interpreted the pertinent images and measurements ofthis study. I attest to the conclusions in the final report that is provided above. Electronically Signed By: Kingsley Adkins MD 03/01/2025 10:39:20 AM CDT Brad Davis MD IM US PROCEDURES Final R esult from Last 3 Months Insurance [employer] Care Teams Hand Picker Relationship Specialty Start Date End Date Abhilash eBy MD PCP - General Family Practice 09/17/23
[2025-05-28 19:46] VITALS: BP 132/45; PULSE 85; RESP 20; TEMP 36.7; O2SAT 98
--- NOTE | 2025-05-28 19:50 | ECG_ITS ---
Test Date: 2025-05-28 19:55:23 Measurements Intervals [place] Rate: 83 P: 66 MA: 162 QRS: -65 QRSD: 100 T: 22 QT: 365 QTc: 430 Interpretive Statements SINUS RHYTHM WITH FREQUENT SUPRAVENTRICULAR PREMATURE COMPLEXES LEFT AXIS DEVIATION [QRS AXIS < -30] ST DEVIATION AND MODERATE T-WAVE ABNORMALITY, CONSIDER ANTEROLATERAL ISCHEMIA [-0.1+ mV T-WAVE IN V3-V6] No previous ECG available for comparison Electronically Signed On 05-28-2025 21:13:08 ADMINISTRATIVE PROFESSIONAL by Zora James M.D.
[2025-05-28 23:11] VITALS: BP 140/89; PULSE 142; RESP 20; O2SAT 97
--- OUTSIDE RECORDS SUMMARY | 2025-05-28 23:26 | XMS_ITS | Clinical Summary ---
Author Organization [facility] Address [address] [place] [id number] Care Team Providers Care Networking Technology Instructor Name Role Phone Unavailable Primary Care Provider [...]
--- OUTSIDE RECORDS SUMMARY | 2025-05-28 23:26 | XMS_ITS | Clinical Summary ---
Author Organization [facility] Address [address] [place] [phone] Care Team Providers Care Pulp Mill Supervisor Name Role Phone Abhilash Bey MD Primary Care Provider [phone] Allergies No known active allergies Medications buPROPion [...] Department Care Team Description 04/03/2025 Orders Only [facility] Cardiology [address] [place] [address] [address] [place] [phone] Aiden Quiñonez MD 03/24/2025 Orders Only [facility] Information Management [address] [place] [id number] Scanning, Provider 03/13/2025 Telephone [facility] Cardiology [address] [place] [address] [place] [phone] Brad Davis MD 03/13/2025 Results Follow-Up [facility] Cardiology [address] [place] [address] [place] [phone] Brad Davis MD Transthoracic Echo (TTE) Complete W Doppler/CF 03/09/2025 11:15 AM CDT Ancillary Procedure [facility] Cardiology at [address] [place] [phone] PAF (paroxysmal atrial fibrillation); Essential hypertension 03/09/2025 9:00 AM CDT Office Visit [facility] Cardiology at [address] [place] [address] Brad Davis MD PAF (paroxysmal atrial fibrillation) (Primary Dx); Essential hypertension; Mixed hyperlipidemia; Chronic anticoagulation; History of stroke; LEXIE (obstructive sleep apnea) 03/02/2025 Results Follow-Up [facility] Cardiology [address] [place] [address] [place] [phone] Brad Davis MD US Carotids Duplex Bilateral 02/28/2025 8:00 AM CDT Ancillary Procedure [facility] Vascular and Vein Surgery at [address] [place] [phone] Carotid artery stenosis, asymptomatic, left from Last [...] on file Legal 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 Gender Identity Not on file Sexual Orientation [...] history exists Medical Devices Implanted Type Area Freight Broker Agent Device Identifier Shelf Expiration Date Model / Serial / Lot [employer] Vascade Mvp 6-12fr Venous Closure [id number] - [id number] Implanted:Qty: 1 on 12/14/2023 by Trace Monique MD at [facility] Right: Femoral Vein [employer] 09/14/2025 800-612C-[id number] [id number] / / [id number] [employer] Vascade Mvp 6-12fr Venous Closure [id number] - [id number] Implanted:Qty: 1 on 12/14/2023 by Trace Monique MD at [facility] Right: Femoral Vein [employer] 07/31/2025 800-612C-1 [id number] / / [id number] [employer] Vascade Mvp 6-12fr Venous Closure [id number] - [id number] Implanted:Qty: 1 on 12/14/2023 by Trace Monique MD at [facility] Right: Femoral Vein [employer] 07/31/2025 800-612C-[id number] [id number] / / [id number] Procedures Procedure Name Priority Date/Time Associated [...] AM CDT Narrative 03/09/2025 5:51 PM CDT [facility] Cardiology [address], [address], [place] [address] P:[phone] P:[phone] Echocardiographic Report Patient Name: MIGUEL ANGEL MENDOZA E : 1945 Study Date: 03/09/2025 11:08:29 AM Gender: M Freelance Art Director: JOEL Location: [facility] Ref Provider: BRAD DAVIS [...] FINDINGS: Interpretation Site: Exam was interpreted at [facility]. Left Ventricle: Mild concentric left ventricular [...] Procedure Note Brad Davis MD - 03/09/2025 [facility] Cardiology [facility], [address], [place] [address] P:[phone] P:[phone] Echocardiographic Report Patient Name: MIGUEL ANGEL MENDOZA E : 1945 Study Date: 03/09/2025 11:08:29 AM Gender: M Freelance Art Director: JOEL Location: [facility] Ref Provider: BRAD DAVIS [...] FINDINGS: Interpretation Site: Exam was interpreted at [facility]. Left Ventricle: Mild concentric left ventricular [...] AM CDT Vascular & Vein Surgery [address] [facility] [place] [address] Carotid Duplex Ultrasound Report Patient Name: MIGUEL ANGEL MENDOZA E : 1945 (80y ) Study Date: 02/28/2025 8:15:01 AM Gender: M Freelance Art Director: BELÉN Location: [facility] Ref Provider: BRAD DAVIS [...] - 03/01/2025 Vascular & Vein Surgery [address] [facility] [place] [address] Carotid Duplex Ultrasound Report Patient Name: MIGUEL ANGEL MENDOZA E : 1945 (80y ) Study Date: 02/28/2025 8:15:01 AM Gender: M Freelance Art Director: Location: [facility] Ref Provider: BRAD DAVIS Quality: [...] internal carotid artery disease is consistent with essmvacf35-10% stenosis. 3. Normal, antegrade flow is noted in bilateral vertebral arteries. ATTESTATION: I have reviewed and interpreted the pertinent images and measurements ofthis study. I attest to the conclusions in the final report that is provided above. Electronically Signed By: Kingsley Adkins MD 03/01/2025 10:39:20 AM CDT Brad Davis MD IM US PROCEDURES Final R esult from Last 3 Months Insurance [facility] Care Teams Pulp Mill Supervisor Relationship Specialty Start Date End Date Abhilash Bey MD PCP - General Family Practice 09/17/23
--- NOTE | 2025-05-28 23:36 | ECG_ITS ---
Test Date: 2025-05-28 23:36:37 Measurements Intervals [place] Rate: 139 P: 0 UT: 0 QRS: -70 QRSD: 135 T: 73 QT: 308 QTc: 469 Interpretive Statements ATRIAL FLUTTER/TACHYCARDIA WITH RAPID VENTRICULAR RESPONSE MARKED LEFT AXIS DEVIATION [QRS AXIS < -30] INTRAVENTRICULAR CONDUCTION DELAY [130+ ms QRS DURATION] Compared to ECG 05/28/2025 19:55:23 Intraventricular conduction delay now present Sinus rhythm no longer present T-wave abnormality no longer present Possible ischemia no longer present Electronically Signed On 05-29-2025 06:42:02 INDEPENDENT CROP CONSULTANT by Zora James M.D.
[2025-05-28 23:41] VITALS: BP 126/102; PULSE 139
[2025-05-28 23:42] VITALS: BP 113/73; PULSE 143
[2025-05-28 23:43] VITALS: BP 58/44; BP 79/56; PULSE 141; PULSE 142
[2025-05-28 23:44] LABS: Hematocrit 44.8 % (42.0-52.0); Hemoglobin 14.7 g/dL (14.0-18.0); Immature Granulocyte Percent A 0.4 % (0-0.5); Lymphocytes Absolute Auto 2.24 K/mm3 (0.9-3.2); Mean Corpuscular HGB Conc 32.8 g/dl (32-36); Mean Corpuscular Hemoglobin 29.5 pg (26-34); Mean Corpuscular Volume 90.0 fl (80-100); Nucleated Red Blood Cells Absolute Auto 0.000 K/mm3 (0.0-0.012); Nucleated Red Blood Cells Perc 0.0 % (0.0-0.2); Platelet Count Result 198 k/mm3 (150-375); Red Blood Count 4.98 M/mm3 (4.6-6.20); White Blood Count 6.8 K/mm3 (4.5-10.0)
[2025-05-28] MEDS: LACTATED RINGERS 1,000 ML 999 ML IV CONT (23:52)
[2025-05-28 23:55] LABS: INR 2.4; Prothrombin Time 25.2 Seconds (11.1-14.7)
[2025-05-28 23:56] LABS: Partial Thromboplastin Time 49.3 Seconds (22.3-36.8)
[2025-05-29] VITALS (8 sets, daily range): BP systolic 95–156; BP diastolic 61–91; PULSE 75–142; RESP 13–20; O2SAT 96–100
[2025-05-29 00:12] LABS: Alanine Aminotransferase 16 U/L (6-50); Albumin Level 4.1 g/dL (3.5-5.1); Alkaline Phosphatase 77 U/L (38-126); Anion Gap 12 mmol/L (4-12); Aspartate Amino Transferase 21 U/L (17-59); Bilirubin,Total 0.2 mg/dL (0.2-1.3); Blood Urea Nitrogen 23 mg/dL (9-20); Calcium 8.5 mg/dL (8.4-10.2); Carbon Dioxide 22 mmol/L (22-30); Chloride 101 mmol/L (98-107); Estimated Glomerular Filt Rate 46; Glucose 108 mg/dL (65-110); Potassium 4.0 mmol/L (3.4-5.0); Sodium 135 mmol/L (137-145); Total Protein 7.6 g/dL (6.3-8.2)
--- NOTE | 2025-05-29 00:16 | ED.FALL ---
HPI - Fall General Chief Complaint: Fall Stated Complaint: DIZZINESS, FELL HIT HEAD, ON XARELTO ?LOC Time Seen by Provider: 05/28/25 23:15 History of Present Illness HPI Narrative: Patient is an 80-year-old male who presents to the ER with a fall earlier today that caused him to hit his head. He reports he believes he lost consciousness. Patient is unsure why he fell but reports the room starts spinning and next thing I knew I was on the floor. He endorses a history of atrial flutter, chronic anticoagulation treatment, and recent upper respiratory infection. Patient denies any recent fevers, headache, chest pain, or back pain. At time of examination patient has no acute complaints. Related Data Home Medications ?Medication ?Instructions ?Recorded ?Confirmed ?Last Taken ?Type amoxicillin 875 mg-potassium tablet PO 04/13/25 04/13/25 Unknown History clavulanate 125 mg tablet benzonatate 200 mg capsule mg PO 04/13/25 04/13/25 Unknown History Allergies Allergy/AdvReac Type Severity Reaction Status Date / Time No Known Allergies Allergy Verified 05/28/25 19:43 Review of Systems Review of Systems: All systems reviewed & are unremarkable except as noted in HPI and below PMFSH Past Medical History Medical History Emphysema lung seen on lung ct Sensation of fullness in both ears Low testosterone Atrial flutter COVID-19 BPH (benign prostatic hyperplasia) Hypovitaminosis D History of tobacco use Erectile dysfunction Essential (primary) hypertension History of CVA (cerebrovascular accident) Mixed hyperlipidemia LEXIE (obstructive sleep apnea) Family History Family History Sibling Family history of coronary artery disease Patient's brother is Father Patient's father is Other Carcinoma of colon Colon polyp Social History Social History Years smoked: 50 Smoking status: Current some day smoker Tobacco type: cigarettes Additional smoking assessment comments: Per patient he only smokes on the golf coarse. Alcohol intake: current Drinks per week: 9 Alcohol use details: socially Substance use: never Substance use type: does not use Do You Feel Safe in your Home?: Yes Lack of Transportation: No Lack of Food: Never True Current Housing: I Have Housing Concerned About Future Housing: No Difficulty Paying Gas/Electric Bills: No Difficulty Paying for Meds: No Currently Unemployed: No Education: Associate Degree Difficulty w/ Childcare or Family Care: No Living arrangements: alone Spiritual care concerns: No Exam Narrative: GENERAL: Well appearing, well-nourished, non-toxic, in no acute distress. HEAD: Normocephalic, approximately 1 1/2 inch linear laceration to the occipital region, bleeding controlled NECK: Supple. No adenopathy, no masses. RESPIRATORY: Airway patent, respirations nonlabored. Clear to auscultation bilaterally, no rales, rhonchi, wheezing. CARDIOVASCULAR: Tachycardia, regular rhythm. Peripheral pulses 2+ and equal bilaterally. ABDOMINAL: Soft, nontender, nondistended, no hepatosplenomegaly. Normoactive BS. MUSCULOSKELETAL: Moves all extremities. Strength/ROM intact without gross deformities. SKIN: Warm, dry, normal color. No rashes. NEURO: A&O X3. Speech clear. Cranial nerves II-XII intact. No ataxic movements. PSYCHIATRIC: Appropriate mood and affect. Normal interaction. Course Vital Signs Vital signs: Vital Signs Temperature 36.7 C 05/28/25 19:46 Pulse Rate 85 05/28/25 19:46 Respiratory Rate 20 05/28/25 19:46 Blood Pressure 132/45 L 05/28/25 19:46 Pulse Oximetry 98 05/28/25 19:46 Temperature 36.7 C 05/28/25 19:46 Pulse Rate 82 05/29/25 01:42 Respiratory Rate 18 05/29/25 01:42 Blood Pressure 156/68 H 05/29/25 01:42 Pulse Oximetry 98 05/29/25 01:42 Procedures Laceration Laceration 1: Date: 05/29/25 Time: 02:00 Site: scalp Side (If applicable): left Size (cm): 4 Description: linear Depth: simple, single layer Local Anesthetic: none (LET gel) Amount of anesthesia used (mL): 3 Pre-repair: irrigated ====== Skin Level ====== Skin layer closed with: peter Number of sutures: 6 ====== Subcutaneous Layer ====== ====== Muscle Layer ====== ====== Tendon Layer ====== MDM - Fall MDM Narrative Medical decision making narrative: Patient is an 80-year-old male who presents to the ER with a fall earlier today that caused him to hit his head. He reports he believes he lost consciousness, but is unsure. Patient is unsure why he fell but reports the room starts spinning and next thing I knew I was on the floor. He endorses a history of atrial flutter, chronic anticoagulation treatment, and recent upper respiratory infection. Patient denies any recent fevers, headache, chest pain, or back pain. Labs Ordered: CBC, CMP, PTT, INR, proBNP, magnesium, lactic acid Imaging Ordered: CT head, CT cervical spine Medications Ordered: LR 1 L normal saline, DuoNeb, let gel, tdap Results: Patient's head CT scan and cervical spine indicates no acute abnormalities. His coags indicated PT of 25.2 seconds, INR 2.4, APTT of 49.3 seconds. Patient's chemistry indicates sodium of 135, BUN of 23, creatinine of 1.48, GFR 46. Diagnosis: Mild dehydration, concussion, scalp laceration Consults: Cardiology (outpatient), Dr. Rodriguez Patient Education/Shared MDM: Pt is unsure when he last had a tetanus vaccine, so he will receive one here in the ER. Results of lab work and imaging shared with patient. He reports he has not experienced any symptoms of light-headedness, chest pain, or shortness of breath during his stay in the ER. Pt is requesting to be discharged home. He reports he was dehydrated and also stood up too fast. He reports he feels much better after receiving IV fluids. Extensive discussion between WELLNESS COACH and pt regarding admission versus discharge home. Patient's heart rate converted into atrial flutter during his ER visit, but he converted back into normal sinus rhythm. He reports he is taking his medication as prescribed for rate control and anticoagulation. Pt was no longer orthostatic after receiving IV fluids. He ambulated around the ER with no symptoms or decompensation. Patient strongly advised to maintain hydration status upon discharge and follow-up with his museum educator as soon as possible. He will not be discharged home with any new prescriptions. He was strongly advised to move positions in a slower manner. Pt should have his peter removed in 10-14 days. Strict return precautions provided. Patient verbalized understanding and is in agreement with plan. Vital signs stable at time of discharge. All questions answered. Differential Diagnosis Differential diagnosis: Likely syncope, compression fracture, concussion with loss of consciousness, concussion without loss of consciousness and other (Orthostatic hypotension, dehydration, scalp laceration) Lab Data Attestation: I reviewed the patient's lab results. 05/28/25 23:37 05/28/25 23:37 Labs: Lab Results 05/28/25 05/28/25 05/29/25 Range/Units 00:10 23:37 00:58 WBC 6.8 (4.5-10.0) K/mm3 RBC 4.98 (4.6-6.20) M/mm3 Hgb 14.7 (14.0-18.0) g/dL Hct 44.8 (42.0-52.0) % MCV 90.0 (80-100) fl MCH 29.5 (26-34) pg MCHC 32.8 (32-36) g/dl RDW 13.4 (11.5-14.5) % Plt Count 198 (150-375) k/mm3 MPV 9.4 (7.4-10.4) fl Immature Gran % (Auto) 0.4 (0-0.5) % Neut % (Auto) 45.8 (45.5-73.1) % Lymph % (Auto) 33.1 (18.3-44.2) % [place] % (Auto) 18.8 H (2.6-8.5) % Eos % (Auto) 1.8 (0-4.4) % Baso % (Auto) 0.1 L (0.2-1.2) % Lymph # (Auto) 2.24 (0.9-3.2) K/mm3 [place] # (Auto) 1.3 H (0.1-0.6) K/mm3 Eos # (Auto) 0.1 (0-0.3) K/mm3 Baso # (Auto) 0.0 (0.0-0.1) K/mm3 Abs Immat Gran (auto) 0.03 (0.00-0.031) K/mm3 Absolute Neuts (auto) 3.1 (1.3-6.7) K/mm3 Absolute Nucleated RBC 0.000 (0.0-0.012) K/mm3 Nucleated RBC % 0.0 (0.0-0.2) % PT 25.2 H (11.1-14.7) Seconds INR 2.4 APTT 49.3 H (22.3-36.8) Seconds Sodium 135 L (137-145) mmol/L Potassium 4.0 (3.4-5.0) mmol/L Chloride 101 (98-107) mmol/L Carbon Dioxide 22 (22-30) mmol/L Anion Gap 12 (4-12) mmol/L BUN 23 H (9-20) mg/dL Creatinine 1.48 H (0.7-1.3) mg/dL Estim Creat Clear Calc Not Reportable Estimated GFR 46 L (59 - ) Glucose 108 (65-110) mg/dL Lactic Acid 0.9 (0.7-2.0) mmol/L Calcium 8.5 (8.4-10.2) mg/dL Magnesium 2.2 (1.6-2.3) mg/dL Total Bilirubin 0.2 (0.2-1.3) mg/dL AST 21 (17-59) U/L ALT 16 (6-50) U/L Alkaline Phosphatase 77 (38-126) U/L NT-Pro-B Natriuret Pep 1090 H (19.9-100) pg/mL Total Protein 7.6 (6.3-8.2) g/dL Albumin 4.1 (3.5-5.1) g/dL Urine Color Yellow (Yellow) Urine Appearance Cloudy H (Clear) Urine pH 6.5 (5.0-9.0) Ur Specific [place] 1.021 (1.001-1.035) Urine Protein 1+ H (Negative) mg/dL Urine Glucose (UA) Negative (Negative) mg/dL Urine Ketones Trace H (Negative) mg/dL Ur Blood (Man) Negative (Negative) Urine Nitrate Negative (Negative) Urine Bilirubin Negative (Negative) Urine Urobilinogen 1.0 (<2.0) mg/dL Add Ur Microanalysis Reviewed Leukocyte Esterase Rfl Negative (Negative) NICANOR/UL Urine RBC 11-20 H (0-2) /hpf Urine WBC 0-5 (0-3) /hpf Ur Squamous Epith Cells None seen (Few) /hpf Urine Bacteria None seen /hpf Urine Casts >20 Imaging Data Attestation: I personally reviewed and interpreted this imaging study as follows: Radiologist's impression: Patient's CT scan indicates no acute abnormalities. Discharge Plan Discharge Clinical Impression: Fall, Concussion, Laceration of scalp, HX: anticoagulation, Syncope, Chronic kidney disease, History of atrial flutter Patient Disposition: Home Condition: Stable Instructions: Antibiotic Form, Laceration (ED), Concussion (ED) Additional Instructions: Please return to the ER with any worsening symptoms. Follow-up with your museum educator as soon as possible. Take all medications as prescribed, including regularly scheduled medications. You may take Tylenol as needed for pain control. Please remember to drink lots of water and stay hydrated. When you are changing positions please do so in a slow manner as to avoid feelings of lightheadedness. Please have your peter removed in 10-14 days. Patient Language: Nauruan Prescriptions: No Action benzonatate 200 mg capsule PO amoxicillin-pot clavulanate 875-125 mg tablet PO azithromycin 250 mg tablet See Rx Instructions PO .COMPLEX Qty: 6 0RF Rx Instructions: For 250 mg dose pack: take 500 mg today (day 1), then 250 mg for 4 days (days 2-5) PO prednisone 20 mg tablet 40 mg PO DAILY Qty: 10 0RF albuterol sulfate 90 mcg/actuation HFA aerosol inhaler 2 inh inhalation Q4H PRN (Reason: shortness of breath or wheezing) Qty: 8.5 0RF Mucinex DM 30-600 mg tablet extended release 12 hr See Rx Instructions PO Q12H PRN (Reason: cough) Qty: 20 0RF Rx Instructions: 1-2 tablest orally every 12 hours PRN; Xarelto 20 mg Tablet 20 mg PO DAILY@1700 Qty: 30 1RF Rx Instructions: Resume on 03/25/2025 diltiazem HCl 120 mg Capsule,Extended Release 24 Hr 120 mg PO QAM Qty: 30 1RF rosuvastatin 10 mg tablet See Rx Instructions .ROUTE .COMPLEX Qty: 90 1RF Dose Instruction: TAKE 1 TABLET BY MOUTH EVERY DAY Rx Instructions: TAKE 1 TABLET BY MOUTH EVERY DAY bupropion HCl 150 mg tablet sustained-release 12 hr 150 mg PO BID Qty: 180 1RF testosterone 30 mg/actuation (1.5 mL) solution in metered pump w/melinda 4 pump topical DAILY Qty: 180 0RF Rx Instructions: apply 2 pumps to each underarm each morning Follow-up/Referrals: Mony Samuel APRN [Primary Care Provider, Internal Medicine] Andrea Rodriguez MD [Physician, Cardiology] Time of Disposition: 02:51
[2025-05-29 00:24] LABS: Magnesium 2.2 mg/dL (1.6-2.3)
[2025-05-29 00:34] LABS: NT Pro B Type Natriuretic Pept 1090 pg/mL (19.9-100)
[2025-05-29] MEDS: IPRATROPIUM 0.5 MG/ALBUTEROL SULFATE 2.5 MG (BASE) AMPUL.NEB 3 ML INHALATION (00:41)
[2025-05-29 01:22] LABS: Add Urine Microscopic? YES; Appearance Urine Cloudy (Clear); Glucose Urine UA Negative (Negative); Leukocyte Esterase Ur Negative LEU/UL (Negative); Need Manual Microscopic Reviewed; Nitrate Urine Negative (Negative); Non Pathogenic Casts >20; Specific Grav Ur 1.021 (1.001-1.035)
[2025-05-29] MEDS: LIDOCAINE, EPINEPHRINE, TETRACAINE VISCOUS SOLN 3 ML (01:51)
[2025-05-29] MEDS: TETANUS,DIPHTHERIA,AC PERTUSSIS ADULT (0.5 ML) BOOSTRIX IM (02:56)
== END 2025-05-29 03:10 | disposition home or self-care (01) ==
PROVIDERS: Emergency Provider Registered Nurse; PCP Nurse Practitioner Family
DX: S06.0XAA Concussion with loss of consciousness status unknown, initial encounter (principal); S01.01XA Laceration without foreign body of scalp, initial encounter; R55 Syncope and collapse; I48.92 Unspecified atrial flutter; I12.9 Hypertensive chronic kidney disease with stage 1 through stage 4 chronic kidney disease, or unspecified chronic kidney disease; N18.9 Chronic kidney disease, unspecified; Z23 Encounter for immunization; E55.9 Vitamin D deficiency, unspecified; E78.2 Mixed hyperlipidemia; N40.0 Benign prostatic hyperplasia without lower urinary tract symptoms; G47.33 Obstructive sleep apnea (adult) (pediatric); F17.210 Nicotine dependence, cigarettes, uncomplicated; Z86.73 Personal history of transient ischemic attack (TIA), and cerebral infarction without residual deficits; Z86.16 Personal history of COVID-19; Z79.01 Long term (current) use of anticoagulants; Z79.899 Other long term (current) drug therapy; I49.1 Atrial premature depolarization; R94.31 Abnormal electrocardiogram [ECG] [EKG]; I45.9 Conduction disorder, unspecified; W18.39XA Other fall on same level, initial encounter
CPT/HCPCS: 12002; 36415; 70450; 71045; 72125; 80053; 81001; 83605; 83735; 83880; 85025; 85610; 85730; 90471; 90715; 93005; 94640; 96360; 99284; J7120

== ENCOUNTER 2025-07-07 06:28 | Emergency (ER) | payer OTHER, SELFPAY ==
[2025-07-07] VITALS (13 sets, daily range): BP systolic 93–127; BP diastolic 60–81; PULSE 90–135; RESP 13–23; TEMP 36.7; O2SAT 94–100
--- NOTE | ~2025-07-07 | XR_ITS ---
Examination: XR chest 1V portable Clinical History: irreg hr Comparison: 05/28/2025 Technique: Portable AP Findings: Heart size normal. Lungs clear. No acute bony abnormality. IMPRESSION: 1. No acute cardiopulmonary findings given portable technique. Reviewed, dictated and finalized at location R. T ROOM WORKER
--- NOTE | 2025-07-07 06:36 | ECG_ITS ---
Test Date: 2025-07-07 06:40:53 Measurements Intervals [place] Rate: 134 P: 0 ND: 0 QRS: -62 QRSD: 102 T: 61 QT: 327 QTc: 489 Interpretive Statements ATRIAL FLUTTER/TACHYCARDIA WITH RAPID VENTRICULAR RESPONSE LEFT AXIS DEVIATION PATTERN CONSISTENT WITH PULMONARY DISEASE INCOMPLETE RIGHT BUNDLE BRANCH BLOCK BASELINE ARTIFACT- I, II, AVR, AVL ABNORMAL ECG Compared to ECG 05/28/2025 23:36:37 NO SIGNIFICANT CHANGE Electronically Signed On 07-07-2025 07:57:28 STAFF APPRAISER by Luis Enrique Hylton D.O.
[2025-07-07 06:50] LABS: Hematocrit 46.2 % (42.0-52.0); Hemoglobin 15.2 g/dL (14.0-18.0); Immature Granulocyte Percent A 0.3 % (0-0.5); Lymphocytes Absolute Auto 2.72 K/mm3 (0.9-3.2); Mean Corpuscular HGB Conc 32.9 g/dl (32-36); Mean Corpuscular Hemoglobin 30.2 pg (26-34); Mean Corpuscular Volume 91.8 fl (80-100); Nucleated Red Blood Cells Absolute Auto 0.000 K/mm3 (0.0-0.012); Nucleated Red Blood Cells Perc 0.0 % (0.0-0.2); Platelet Count Result 239 k/mm3 (150-375); Red Blood Count 5.03 M/mm3 (4.6-6.20); White Blood Count 8.8 K/mm3 (4.5-10.0)
[2025-07-07 07:01] LABS: INR 1.5; Prothrombin Time 18.2 Seconds (11.1-14.7)
[2025-07-07 07:02] LABS: Partial Thromboplastin Time 44.3 Seconds (22.3-36.8)
--- NOTE | 2025-07-07 07:02 | ED_ITS ---
HPI - Arrhythmia/Palpitations General Chief Complaint: Arrhythmia/Palpitations Stated Complaint: Rapid heart rate Time Seen by Provider: 07/07/25 07:01 History of Present Illness HPI narrative: 80-year-old male with history of atrial fibrillation presents emerged department jaw pain. Patient states he has felt like this in the past when he has been with a fast heart rate. Denies any chest pain or shortness of breath. He states he felt the sensation approximately 1:00 a.m. decided come the emergency department. He is on anticoagulation and rate control medications specifically diltiazem. He denies any infectious symptoms, states yesterday he had an extremely physical day with a lot of exertion putting together furniture and thinks he overdid it yesterday and that is responsible for today's presentation. He states he is compliant with his medication. Related Data Allergies Allergy/AdvReac Type Severity Reaction Status Date / Time No Known Allergies Allergy Verified 06/06/25 07:57 Review of Systems 2 Review of Systems: All systems reviewed & are unremarkable except as noted in HPI and below PMFSH Past Medical History Medical History Emphysema lung seen on lung ct Sensation of fullness in both ears Low testosterone Atrial flutter COVID-19 BPH (benign prostatic hyperplasia) Hypovitaminosis D History of tobacco use Erectile dysfunction Essential (primary) hypertension History of CVA (cerebrovascular accident) Mixed hyperlipidemia LEXIE (obstructive sleep apnea) Family History Family History Sibling Family history of coronary artery disease Patient's brother is Father Patient's father is Other Carcinoma of colon Colon polyp Social History Social History (Updated 06/06/25 @ 08:01 by Jagruti Ferrer CMA) Smoking packs per day: 0.25 Smoking cigarettes per day: 5.0 Years smoked: 50 Smoking pack-years: 12.50 Smoking status: Current some day smoker Tobacco type: cigarettes Alcohol intake: current Drinks per week: 9 Alcohol use details: socially Substance use: never Substance use type: does not use Lack of Transportation: No Lack of Food: Never True Current Housing: I Have Housing Concerned About Future Housing: No Difficulty Paying Gas/Electric Bills: No Difficulty Paying for Meds: No Currently Unemployed: No Education: Associate Degree Difficulty w/ Childcare or Family Care: No Living arrangements: alone Spiritual care concerns: No Exam 2 Narrative: EXAMINATION OF ORGAN SYSTEMS/BODY AREAS: Constitutional: Vital signs per nursing GENERAL:[No acute distress, non-toxic appearing.] HEAD: Normal with no signs of head trauma. EYES: EOMI, conjunctiva normal ENT: Hearing grossly intact LUNGS: Nonlabored breathing. Clear to auscultation bilaterally HEART: Tachy rate regular rhythm. Brisk cap refill 2+ radial pulses ABD: [Soft], [nontender to palpation] EXT: Normal range of motion SKIN: [No rashes or lesions.] NEURO: [Alert. No gross focal sensory or strength deficits.] PSYCH: Normal affect Course Vital Signs Vital signs: Vital Signs Temperature 36.7 C 07/07/25 06:37 Pulse Rate 132 H 07/07/25 06:37 Respiratory Rate 18 07/07/25 06:37 Blood Pressure 127/80 07/07/25 06:37 Pulse Oximetry 99 07/07/25 06:37 Oxygen Delivery Room Air 07/07/25 06:37 Temperature 36.7 C 07/07/25 06:37 Pulse Rate 131 H 07/07/25 07:47 Respiratory Rate 20 07/07/25 07:47 Blood Pressure 108/71 07/07/25 07:47 Pulse Oximetry 97 07/07/25 07:47 Oxygen Delivery Room Air 07/07/25 06:37 MDM Differential Diagnosis Differential Diagnosis: 80-year-old male with history of AFib presents with stable AFib with RVR. He is mentating appropriately has brisk cap refill. I suspect that it is likely the physical exertion yesterday as the impetus for his AFib with RVR here today however also in the differential severe electrolyte abnormality or atypical presentation of ACS or an infectious etiology. Hold pain chest x-ray to rule out pneumonia or pneumothorax, cardiac workup EKG continuous vital sign monitoring will attempt rate control with IV fluids, IV magnesium sulfate and 10 mg of IV diltiazem apply for evaluation after workup and treatment . Results and re-evaluation Patient's labs reviewed within acceptable limits. EKG shows AFib with RVR, electrolytes also within appropriate limits. Patient responded well to IV fluids magnesium Na 10 mg push of IV diltiazem. He is currently rate controlled. Patient would like to go home which I do not think is unreasonable given his clinical presentation he has close outpatient follow-up with cardiology which I encouraged him to follow up with to have his rate control medications addressed. Otherwise all questions answered return precautions discussed discharged in fair condition Medical Records I have reviewed the following patient records and this information was taken into consideration when formulating the assessment and plan.: previous labs and previous ER visits Lab Data MDM Lab Attestation statement: I personally reviewed the patient's lab results. 07/07/25 06:43 07/07/25 06:43 Labs: Lab Results 07/07/25 Range/Units 06:43 WBC 8.8 (4.5-10.0) K/mm3 RBC 5.03 (4.6-6.20) M/mm3 Hgb 15.2 (14.0-18.0) g/dL Hct 46.2 (42.0-52.0) % MCV 91.8 (80-100) fl MCH 30.2 (26-34) pg MCHC 32.9 (32-36) g/dl RDW 13.3 (11.5-14.5) % Plt Count 239 (150-375) k/mm3 MPV 9.4 (7.4-10.4) fl Immature Gran % (Auto) 0.3 (0-0.5) % Neut % (Auto) 52.8 (45.5-73.1) % Lymph % (Auto) 30.8 (18.3-44.2) % [place] % (Auto) 11.7 H (2.6-8.5) % Eos % (Auto) 4.2 (0-4.4) % Baso % (Auto) 0.2 (0.2-1.2) % Lymph # (Auto) 2.72 (0.9-3.2) K/mm3 [place] # (Auto) 1.0 H (0.1-0.6) K/mm3 Eos # (Auto) 0.4 H (0-0.3) K/mm3 Baso # (Auto) 0.0 (0.0-0.1) K/mm3 Abs Immat Gran (auto) 0.03 (0.00-0.031) K/mm3 Absolute Neuts (auto) 4.7 (1.3-6.7) K/mm3 Absolute Nucleated RBC 0.000 (0.0-0.012) K/mm3 Nucleated RBC % 0.0 (0.0-0.2) % PT 18.2 H (11.1-14.7) Seconds INR 1.5 APTT 44.3 H (22.3-36.8) Seconds Sodium 138 (137-145) mmol/L Potassium 3.9 (3.4-5.0) mmol/L Chloride 107 (98-107) mmol/L Carbon Dioxide 26 (22-30) mmol/L Anion Gap 5 (4-12) mmol/L BUN 18 (9-20) mg/dL Creatinine 1.29 (0.7-1.3) mg/dL Estim Creat Clear Calc 42 ml/min Estimated GFR 53 L (59 - ) Glucose 104 (65-110) mg/dL Calcium 9.6 (8.4-10.2) mg/dL Total Bilirubin 0.6 (0.2-1.3) mg/dL AST 39 (17-59) U/L ALT 23 (6-50) U/L Alkaline Phosphatase 87 (38-126) U/L Troponin I < 0.012 (0.000-0.034) ng/mL Total Protein 8.0 (6.3-8.2) g/dL Albumin 4.1 (3.5-5.1) g/dL Lipase 89 (23-300) U/L Imaging Data Attestation: I personally reviewed and interpreted this imaging study as follows: My impression: Chest x-ray shows normal cardiac silhouette no free air no pneumothorax. Overall impression normal chest x-ray Radiologist's impression: ITS Impressions Chest X-Ray 07/07/25 07:19 IMPRESSION: 1. No acute cardiopulmonary findings given portable technique. ECG Data EKG #1: Attestation: I personally reviewed and interpreted this ECG as follows: Interpretation: Twelve lead EKG shows atrial fibrillation with RVR 134 beats per minute. Otherwise normal intervals. Normal axis. Incomplete right bundle branch block. Similar compared to prior. Overall impression abnormal EKG per Discharge Plan Discharge Clinical Impression: Atrial fibrillation, Palpitations Patient Disposition: Home Condition: Stable Instructions: A-fib (Atrial Fibrillation) (ED) Patient Language: Italian Prescriptions: No Action albuterol sulfate 90 mcg/actuation HFA aerosol inhaler 2 inh inhalation Q4H PRN (Reason: shortness of breath or wheezing) Qty: 8.5 0RF Xarelto 20 mg Tablet 20 mg PO DAILY@1700 Qty: 30 1RF Rx Instructions: Resume on 03/25/2025 diltiazem HCl 120 mg Capsule,Extended Release 24 Hr 120 mg PO QAM Qty: 30 1RF bupropion HCl 150 mg tablet sustained-release 12 hr 150 mg PO BID Qty: 180 1RF testosterone 30 mg/actuation (1.5 mL) solution in metered pump w/melinda 4 pump topical DAILY Qty: 180 0RF Rx Instructions: apply 2 pumps to each underarm each morning rosuvastatin 10 mg tablet See Rx Instructions .ROUTE .COMPLEX Qty: 90 1RF Dose Instruction: TAKE 1 TABLET BY MOUTH EVERY DAY Rx Instructions: TAKE 1 TABLET BY MOUTH EVERY DAY Follow-up/Referrals: Mony Samuel APRN [Primary Care Provider, Internal Medicine] Time of Disposition: 08:24
[2025-07-07 07:08] LABS: Alanine Aminotransferase 23 U/L (6-50); Albumin Level 4.1 g/dL (3.5-5.1); Alkaline Phosphatase 87 U/L (38-126); Anion Gap 5 mmol/L (4-12); Aspartate Amino Transferase 39 U/L (17-59); Bilirubin,Total 0.6 mg/dL (0.2-1.3); Blood Urea Nitrogen 18 mg/dL (9-20); Calcium 9.6 mg/dL (8.4-10.2); Carbon Dioxide 26 mmol/L (22-30); Chloride 107 mmol/L (98-107); Estimated CRCL calculation 42 ml/min; Estimated Glomerular Filt Rate 53; Glucose 104 mg/dL (65-110); Lipase 89 U/L (23-300); Potassium 3.9 mmol/L (3.4-5.0); Sodium 138 mmol/L (137-145); Total Protein 8.0 g/dL (6.3-8.2)
[2025-07-07 07:20] LABS: Troponin I < 0.012 ng/mL (0.000-0.034)
[2025-07-07] MEDS: SODIUM CHLORIDE 0.9% IV 1,000 ML 999 ML IV CONT ×2 (07:35)
[2025-07-07] MEDS: SODIUM CHLORIDE 0.9% IV 400 ML 999 ML IV CONT (07:35)
[2025-07-07] MEDS: MAGNESIUM SULF 2 GM/WATER 50ML 2 GM/50 ML BAG IVPB (07:35)
== END 2025-07-07 09:21 | disposition home or self-care (01) ==
PROVIDERS: Student in an Organized Health Care Education/Training Program; Emergency Provider Emergency Medicine; PCP Nurse Practitioner Family
DX: I48.91 Unspecified atrial fibrillation (principal); R00.2 Palpitations; I10 Essential (primary) hypertension; E78.2 Mixed hyperlipidemia; J43.9 Emphysema, unspecified; N40.0 Benign prostatic hyperplasia without lower urinary tract symptoms; G47.33 Obstructive sleep apnea (adult) (pediatric); F17.210 Nicotine dependence, cigarettes, uncomplicated; Z86.73 Personal history of transient ischemic attack (TIA), and cerebral infarction without residual deficits; Z86.16 Personal history of COVID-19; Z79.01 Long term (current) use of anticoagulants; Z79.899 Other long term (current) drug therapy; I45.10 Unspecified right bundle-branch block; R94.31 Abnormal electrocardiogram [ECG] [EKG]
CPT/HCPCS: 36415; 71045; 80053; 83690; 84484; 85025; 85610; 85730; 93005; 96365; 96366; 96375; 99284; J1163; J3475; J7030